=== PATIENT | female | born 1965 | race Caucasian/White ===

== ENCOUNTER → 2019-11-03 11:27 | Outpatient (BNVA) | payer MEDICARE, MEDICAID, SELFPAY | PROVIDERS: Family Provider Nurse Practitioner Family; PCP Nurse Practitioner Family; Visit Provider Nurse Practitioner | DX: J02.9 Acute pharyngitis, unspecified (principal) | CPT/HCPCS: 87880 ==

== ENCOUNTER → 2020-02-08 10:16 | Outpatient (BNVA) | payer MEDICARE, MEDICAID, SELFPAY | PROVIDERS: Family Provider Nurse Practitioner Family; PCP Nurse Practitioner Family; Visit Provider Nurse Practitioner Family | DX: I10 Essential (primary) hypertension (principal); E05.90 Thyrotoxicosis, unspecified without thyrotoxic crisis or storm; E55.9 Vitamin D deficiency, unspecified; D64.9 Anemia, unspecified; M11.262 Other chondrocalcinosis, left knee; E78.2 Mixed hyperlipidemia; Z79.899 Other long term (current) drug therapy; E04.9 Nontoxic goiter, unspecified; M71.22 Synovial cyst of popliteal space [Baker], left knee; M51.36 Other intervertebral disc degeneration, lumbar region; M51.34 Other intervertebral disc degeneration, thoracic region; M54.9 Dorsalgia, unspecified; E03.9 Hypothyroidism, unspecified; G89.29 Other chronic pain | CPT/HCPCS: 80053; 80061; 81001; 82306; 82607; 83036; 83540; 84439; 84443; 84481; 84550; 85025 ==

== ENCOUNTER 2020-03-07 06:51 | Outpatient (CLI) | payer MEDICARE, MEDICAID, SELFPAY ==
--- NOTE | 2020-03-07 07:15 | US_ITS ---
WS: [id number] THYROID ULTRASOUND HISTORY: goiter COMPARISON: None available. Right lobe: 3.7 cm x 2.1 cm x 2.1 cm. Volume: 8.6 cm3. Heterogeneous thyroid. Ill-defined hypoechoic nodule in the inferior lobe measuring 1.1 x 1.0 x 1.5 c m. Poorly defined. There is an additional smaller nodule with a maximum diameter of 8 mm in the super ior thyroid. Left lobe: 3.6 cm x 1.5 cm x 1.8 cm. Volume: 5.1 cm3. Hypoechoic mass within the inferior thyroid measures 1.1 x 0.9 x 1.1 cm. Isthmus: 0.4 cm. Hypoechoic nodules in the mid isthmus. These are subcentimeter. US/US thyroid [id number] IMPRESSION: 1. Several bilateral thyroid nodules. The largest in the inferior RIGHT lobe m easures 1.5 maximum diameter. As there are multiple nodules suggest 6-12 month ultrasound follow-up to document stability.
--- NOTE | 2020-03-07 08:00 | US_ITS ---
WS: [id number] ULTRASOUND SOFT TISSUES LEFT popliteal fossa. HISTORY: Ascencio's Cyst COMPARISON: 04/08/2019 TECHNIQUE: 2-D and color Doppler imaging is submitted. Minimally complex cystic mass in the popliteal fossa measures 2.1 x 1.0 x 1.9 cm. No increased vascul arity. Just medial to this collection is irregular shaped hypoechoic area which was also present on t he prior study. This is probably connected by a small tract to the larger cyst. There is no increased vascularity. US/US soft tissue/extremity [id number] IMPRESSION: Complex, multilobular cystic area in the LEFT popliteal fossa. Probably represe nting a Ascencio's cyst. Similar appearance on 04/08/2019.
== END 2020-03-07 06:52 | disposition home or self-care (01) ==
LOC: RAD 06:54
PROVIDERS: PCP Nurse Practitioner Family; Visit Provider Nurse Practitioner Family
DX: M71.22 Synovial cyst of popliteal space [Baker], left knee (principal); E04.9 Nontoxic goiter, unspecified; E04.2 Nontoxic multinodular goiter
CPT/HCPCS: 76536; 76882

== ENCOUNTER 2020-03-07 09:47 | Outpatient (CLI) | payer MEDICARE, MEDICAID, SELFPAY ==
--- NOTE | 2020-03-07 09:49 | MR_ITS ---
WS: [id number] MRI CERVICAL SPINE HISTORY: CERVICAL RADICULITIS COMPARISON: 01/21/2003 Normal alignment of the cervical vertebrae. Mild disc desiccation throughout. Signal within the cord is normal. Mild disc desiccation and bulging at C5-6 and C6-7. Craniocervical junction, C1 and C2 relationship, odontoid process and soft tissues are normal. C2-C3: Normal. C3-C4: Small LEFT foraminal osteophytes. No significant stenosis. C4-C5: Mild annular disc bulging and small foraminal osteophytes. No significant stenosis. C5-C6: Mild annular disc bulging with a central protrusion. Mild central and bilateral foraminal narr owing. C6-C7: Mild annular disc bulging and small central disc protrusion. No significant stenosis. C7-T1: Normal. Paraspinal soft tissue are normal. MR/MR cervical spin wo con* [id number] IMPRESSION: 1. No significant central or foraminal stenosis. 2. Small central disc protrusions and vertebral body osteophytes at C5-6 and C 6-7. 3. Very mild central and bilateral foraminal narrowing at C5-6. Findings simil ar to the prior examination from 2002.
== END 2020-03-07 09:48 | disposition home or self-care (01) ==
LOC: RADSHAW 09:47
PROVIDERS: PCP Nurse Practitioner Family; Visit Provider Anesthesiology
DX: M54.12 Radiculopathy, cervical region (principal); M50.223 Other cervical disc displacement at C6-C7 level; M48.02 Spinal stenosis, cervical region
CPT/HCPCS: 72141

== ENCOUNTER → 2020-07-18 08:38 | Outpatient (BNVA) | payer MEDICARE, MEDICAID, SELFPAY | PROVIDERS: PCP Nurse Practitioner Family; Visit Provider Nurse Practitioner Family | DX: Z11.59 Encounter for screening for other viral diseases (principal); J22 Unspecified acute lower respiratory infection; U07.1 COVID-19 | CPT/HCPCS: 87635 ==

== ENCOUNTER 2020-07-26 16:44 | Inpatient (IN) | payer MEDICARE, MEDICAID, SELFPAY ==
[2020-07-26] VITALS (10 sets, daily range): BP systolic 116–213; BP diastolic 63–121; PULSE 71–90; RESP 18–22; TEMP 36.8–37; O2SAT 92–97; BMI 50.3
--- NOTE | 2020-07-26 16:54 | XRR_ITS ---
PROCEDURE INFORMATION: Exam: XR Chest, 1 View Exam date and time: 07/26/2020 5:19 PM Age: 55 years old Clinical indication: Chest pain; Patient HX: Cp TECHNIQUE: Imaging protocol: XR of the chest Views: 1 view. COMPARISON: No relevant prior studies available. FINDINGS: Lungs: Unremarkable. No consolidation. Pleural space: Unremarkable. No pleural effusion. No pneumothorax. Heart/Mediastinum: Unremarkable. No cardiomegaly. Bones/joints: Unremarkable. Other findings: Obesity. XR/XR chest 1V portable [id number] IMPRESSION: Nonacute.
--- NOTE | 2020-07-26 16:54 | ECG_ITS ---
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
[2020-07-26] MEDS: labetalol 5 mg/mL SDV 20mL 20 MG IVP (17:03)
[2020-07-26 17:04] LABS: Basophils # 0.1 10^3/uL (0.0-0.1); Basophils % 0.5 %; Eosinophils # 0.5 10^3/uL (0.0-0.8); Eosinophils % 4.9 %; Hematocrit 45.2 % (37.0-47.0); Hemoglobin 14.9 g/dL (11.5-15.3); Lymphocytes % 20.6 %; Mean Corpuscular Volume 91.1 fL (81-99); Mean Platelet Volume 10.2 fL (7.4-10.4); Monocytes # 1.2 10^3/uL (0.2-0.9); Monocytes % 11.8 %; Neutrophils # 6.11 10^3/uL (1.8-7.7); Neutrophils % 61.8 %; Nucleated Red Blood Cells % 0 %; Platelet Count 166 10^3/cmm (130-400); Red Blood Count 4.96 10^6/uL (4.1-5.3); Red Cell Distribution Width 13.1 % (12.1-15.1); White Blood Count 9.9 10^3/uL (4.0-10.0)
--- NOTE | 2020-07-26 17:16 | ED_ITS ---
HPI - SOB/Dyspnea General: Chief Complaint: Shortness of Breath/Dyspnea Stated Complaint: DIFF BREATHING Time Seen by Provider: 07/26/20 16:49 Source: patient Mode of arrival: ambulatory Limitations: no limitations History of Present Illness: HPI Narrative: 55-year-old female who states she has been around a lot of dust and feels like she has been having area reactions to the dust. She states that over the last 2 days she has had intermittent shortness of breath with some chest pains. Patient is hypertensive today here of 260/132 but states she has not taken any of her meds. States her pain was a sharp pain in the center of her chest and is worse with palpation. She denies any fevers. Associated symptoms: Reports chest pain; Deny abdominal pain, fever(s), nausea or vomiting Review of Systems Const: Denies: fever(s), chills, body aches or change in appetite Eyes: Denies: blurry vision or eye discomfort ENMT: Denies: throat pain or dental pain Card: Reports: chest pain Resp: Reports: dyspnea GI: Denies: abdominal pain, nausea, vomiting or diarrhea : Denies: dysuria Musc: Denies: neck pain or back pain Skin/Breast: Denies: rash Neuro: Denies: headache(s) Psych: Denies: depression Jace/Lymph: Denies: easy bruising All/Imm: Denies: urticaria PFSH ED PFSH: Medical History Breast cancer screening by mammogram Chest pain Chest pain Hypertension Hypothyroidism Lower respiratory tract infection due to COVID-19 virus Mixed hyperlipidemia Morbid obesity Obesity Patient has been followed for one year for planned bariatric weight loss surgery. Pseudogout of left knee Sleep apnea Synovial cyst of popliteal space [Ascencio], left knee Surgical History History of bladder surgery (1996) History of cholecystectomy (1992) History of ear surgery (2011) Right ear construction and left ear tube placed History of hysterectomy (1995) History of tonsillectomy and adenoidectomy History of tubal ligation (1989) Family History Sister Diabetes Grandmother Diabetes Mother Hypoglycemia Other Cancer Denies family history of Anesthesia complication Bleeding disorder Social History Smoking and tobacco status: never smoked Second hand smoke exposure: No Smoking risk assessment/counseling performed?: No Alcohol intake: never Desire information about alcohol rehabilitation?: No Counseling given: No Desire information about substance/drug rehabilitation?: No Counseling given: No Lives independently: Yes Household members: children Current occupational status: disabled History of recent travel: No Special brissa needs: No Agree to transfusion: No Physical Exam Const: COMMON NORMALS: no acute distress, patient oriented x3 and healthy appearing HENMT: COMMON NORMALS: normocephalic and atraumatic HEAD & SCALP: normocephalic and atraumatic Eye: COMMON NORMALS: Equal, round and reactive pupils present and EOMs intact bilaterally PUPIL: Yes Equal, round and reactive pupils present Neck/C-Spine: COMMON NORMALS: full ROM and supple Chest: COMMONS NORMALS: normal inspection of the chest OTHER: Point tenderness in her chest Resp: COMMON NORMALS: normal respiratory effort, No retractions, No use of accessory muscles and clear to auscultation bilaterally AUSCULTATION: clear to auscultation bilaterally Cardio: COMMON NORMALS: regular rate, regular rhythm and No murmurs present (Cardio) RATE: regular rate RHYTHM: regular rhythm GI: COMMON NORMALS: Normal to inspection, nondistended, normoactive bowel sounds present, Soft to palpation, non-tender and no masses PALPATION: Yes Soft to palpation Extremity: COMMON NORMALS: normal to inspection and full ROM Neuro: COMMON NORMALS: patient oriented x3, moves all extremities and no focal motor deficits Psych: COMMON NORMALS: mental status grossly normal, Normal thought process present and cooperative THOUGHT PROCESS: Normal thought process present Skin: COMMON NORMALS: no rashes or lesions noted and no wounds GENERAL SKIN EXAM: no rashes or lesions noted Course Vital Signs: Vital signs: Vital Signs Temperature 98.6 F 07/26/20 16:47 Pulse Rate 84 07/26/20 19:19 Respiratory Rate 20 H 07/26/20 19:19 Blood Pressure 193/110 07/26/20 19:19 Pulse Oximetry 97 07/26/20 19:19 MDM - SOB/Dyspnea MDM Narrative: Medical decision making narrative: Freda presents here with dyspnea along with some chest pain. Patient does have an elevated BNP and CT shows possible CHF. Spoke to hospitalist will admit for observation as likely patient needs trended troponin and cardiac echo. I gave patient IV Chuy here. Will admit to cardiac stepdown. Lab Data: Labs: Lab Results 07/26/20 07/26/20 07/26/20 Range/Units 16:55 16:55 16:55 WBC 9.9 (4.0-10.0) 10^3/ uL RBC 4.96 (4.1-5.3) 10^6/u L Hgb 14.9 (11.5-15.3) g/dL Hct 45.2 (37.0-47.0) % MCV 91.1 (81-99) fL MCH 30.0 (28.0-34.0) pg MCHC 33.0 (30.0-36.0) g/dL RDW 13.1 (12.1-15.1) % Plt Count 166 (130-400) 10^3/c mm MPV 10.2 (7.4-10.4) fL Neut % (Auto) 61.8 % Lymph % (Auto) 20.6 % [place] % (Auto) 11.8 % Eos % (Auto) 4.9 % Baso % (Auto) 0.5 % Neut # (Auto) 6.11 (1.8-7.7) 10^3/u L Lymph # (Auto) 2.0 (0.8-4.8) 10^3/u L [place] # (Auto) 1.2 H (0.2-0.9) 10^3/u L Eos # (Auto) 0.5 (0.0-0.8) 10^3/u L Baso # (Auto) 0.1 (0.0-0.1) 10^3/u L Nucleated RBC % (a uto) 0 % Nucleated RBCs # 0.0 /100WBC D-Dimer (0-0.59) ug/mIFE U Sodium 140 (136-145) mmol/L Potassium 4.0 (3.5-5.1) mmol/L Chloride 104 (98-107) mmol/L Carbon Dioxide 28 (22-29) mmol/L Anion Gap 12.0 (5-19) BUN 9 (6-20) mg/dL Creatinine 0.8 (0.5-0.9) mg/dL GFR Calculation 74.7 L (90-130) mL/min Glucose 107 (65-115) mg/dL Calculated Osmolal ity 289 (285-295) mOsm/k g Calcium 9.4 (8.5-10.5) mg/dL Total Bilirubin 0.9 (0.15-1.2) mg/dL AST 46 H (0-32) U/L ALT 48 H (0-33) U/L Alkaline Phosphata se 146 H (35-105) IU/L Troponin T Baselin e 37 H (0-10) ng/L Troponin T 120 Min burns pai[place] (0-10) ng/L Delta Troponin T (0-10) ABS# NT-Pro-B Natriuret Pep (0-125) pg/mL Total Protein 7.1 (6.6-8.7) g/dL Albumin 4.0 (3.5-5.2) g/dL Globulin 3.1 (1.3-4.6) g/dL 07/26/20 07/26/20 07/26/20 Range/Units 16:55 17:48 19:25 WBC (4.0-10.0) 10^3/ uL RBC (4.1-5.3) 10^6/u L Hgb (11.5-15.3) g/dL Hct (37.0-47.0) % MCV (81-99) fL MCH (28.0-34.0) pg MCHC (30.0-36.0) g/dL RDW (12.1-15.1) % Plt Count (130-400) 10^3/c mm MPV (7.4-10.4) fL Neut % (Auto) % Lymph % (Auto) % [place] % (Auto) % Eos % (Auto) % Baso % (Auto) % Neut # (Auto) (1.8-7.7) 10^3/u L Lymph # (Auto) (0.8-4.8) 10^3/u L [place] # (Auto) (0.2-0.9) 10^3/u L Eos # (Auto) (0.0-0.8) 10^3/u L Baso # (Auto) (0.0-0.1) 10^3/u L Nucleated RBC % (a uto) % Nucleated RBCs # /100WBC D-Dimer 1.41 H (0-0.59) ug/mIFE U Sodium (136-145) mmol/L Potassium (3.5-5.1) mmol/L Chloride (98-107) mmol/L Carbon Dioxide (22-29) mmol/L Anion Gap (5-19) BUN (6-20) mg/dL Creatinine (0.5-0.9) mg/dL GFR Calculation (90-130) mL/min Glucose (65-115) mg/dL Calculated Osmolal ity (285-295) mOsm/k g Calcium (8.5-10.5) mg/dL Total Bilirubin (0.15-1.2) mg/dL AST (0-32) U/L ALT (0-33) U/L Alkaline Phosphata se (35-105) IU/L Troponin T Baselin e (0-10) ng/L Troponin T 120 Min burns [place] 40.89 H (0-10) ng/L Delta Troponin T 3.89 (0-10) ABS# NT-Pro-B Natriuret Pep 2291 H (0-125) pg/mL Total Protein (6.6-8.7) g/dL Albumin (3.5-5.2) g/dL Globulin (1.3-4.6) g/dL Imaging Data^: CXR: Attestation: I personally reviewed and interpreted this imaging study as follows: Radiologist's impression: [address] [address] XRay Report Signed Patient: Freda Perry Unit #: [id number] : 1965 Age/Sex: 55 / F ADM Date: 07/26/20 Loc: ER Room/Bed: Attending Dr: Ordering Provider/Ordering MD: Joanie Sheets MD Date of Service: 07/26/20 Procedure(s): XR chest 1V portable [id number] Accession Number(s): [id number] Report Number: [id number] PROCEDURE INFORMATION: Exam: XR Chest, 1 View Exam date and time: 07/26/2020 5:19 PM Age: 55 years old Clinical indication: Chest pain; Patient HX: Cp TECHNIQUE: Imaging protocol: XR of the chest Views: 1 view. COMPARISON: No relevant prior studies available. FINDINGS: Lungs: Unremarkable. No consolidation. Pleural space: Unremarkable. No pleural effusion. No pneumothorax. Heart/Mediastinum: Unremarkable. No cardiomegaly. Bones/joints: Unremarkable. Other findings: Obesity. XR/XR chest 1V portable [id number] IMPRESSION: Nonacute. CT Chest: Radiologist's impression: [address] [address] [address] Scan Report Signed Patient: Freda Perry Unit #: [id number] : 1965 Age/Sex: 55 / F ADM Date: 07/26/20 Loc: ER Room/Bed: Attending Dr: Ordering Provider/Ordering MD: Joanie Sheets MD Date of Service: 07/26/20 Procedure(s): CT angio chest PE prot [id number] Accession Number(s): [id number] Report Number: [id number] PROCEDURE INFORMATION: Exam: CT Angiography Chest With Contrast Exam date and time: 07/26/2020 7:03 PM Age: 55 years old Clinical indication: Shortness of breath; Additional info: RO pe TECHNIQUE: Imaging protocol: Computed tomographic angiography of the chest with intravenous contrast. 3D rendering (Not supervised by radiologist): MIP and/or 3D reconstructed images were created by the technologist. Radiation optimization: All CT scans at this facility use at least one of these dose optimization techniques: automated exposure control; mA and/or kV adjustment per patient size (includes targeted exams where dose is matched to clinical indication); or iterative reconstruction. Contrast material: OMNI 350; Contrast volume: 72 ml; Contrast route: INTRAVENOUS (IV); COMPARISON: CR XR chest 1V portable [id number] 07/26/2020 5:08 PM RADIATION DOSE METRICS: Total DLP (mGy-cm): 534.15 FINDINGS: Pulmonary arteries: No visible evidence of pulmonary embolism/pulmonary arterial thrombus. Aorta: Unremarkable. No aortic aneurysm. No aortic dissection. Lungs: Minimal dependent atelectasis lung bases. Evidence of antecedent granulomatous disease to include calcified granulomas. Pleural space: Bilateral small volume pleural effusions. Heart: Cardiac size upper limits of normal. Left ventricular prominence. No visible pericardial effusion. Lymph nodes: Unremarkable. No enlarged lymph nodes. Liver: Hepatosplenomegaly. Gallbladder and bile ducts: Status post cholecystectomy. Bones/joints: Diffuse idiopathic skeletal hyperostosis. No visible acute osseous abnormality. Soft tissues: Unremarkable. Other findings: Marked obesity. Increased quantum mottle artifact which degrades image quality in detail. CT/CT angio chest [place] protcl [id number] IMPRESSION: 1. No visible evidence of pulmonary embolism/pulmonary arterial thrombus. 2. Bilateral small volume pleural effusions. 3. Cardiac size upper limits of normal. 4. Left ventricular prominence. 5. Hepatosplenomegaly. 6. Minimal dependent atelectasis lung bases. 7. Status post cholecystectomy. 8. Evidence of antecedent granulomatous disease. EKG Data^: EKG 1: Attestation: I personally reviewed and interpreted this EKG as follows: EKG Interpretation Date: 07/26/20 EKG interpretation time: 16:49 Interpretation: nsr hr [address] or t wave abnormalities qrs 170 qtc 468 EKG 2: Attestation: I personally reviewed and interpreted this EKG as follows: EKG Interpretation Date: 07/26/20 EKG interpretation time: 18:49 Interpretation: nsr hr [address] or t wave abnormality Discharge Plan Discharge Patient Disposition: Admitted As Inpatient Clinical Impression: Congestive heart failure, Acute dyspnea Condition: Stable Referrals: [facility] Ham, [employer] [Primary Care Provider] - Coding Level of Care Code ED Hoe Runner for Chg Fwd Exam Comprehensive
[2020-07-26 17:25] LABS: Alanine Aminotransferase 48 U/L (0-33); Alkaline Phosphatase 146 IU/L (35-105); Aspartate Amino Transferase 46 U/L (0-32); Blood Urea Nitrogen 9 mg/dL (6-20); Calcium 9.4 mg/dL (8.5-10.5); Carbon Dioxide 28 mmol/L (22-29); Chloride 104 mmol/L (98-107); Globulin 3.1 g/dL (1.3-4.6); Glomerular Filtration Rate 74.7 mL/min (90-130); Glucose 107 mg/dL (65-115); Osmolality Calculated 289 mOsm/kg (285-295); Sodium 140 mmol/L (136-145); Total Bilirubin 0.9 mg/dL (0.15-1.2); Total Protein 7.1 g/dL (6.6-8.7)
[2020-07-26 17:38] LABS: Troponin(5th) Baseline 37 ng/L (0-10)
[2020-07-26 18:17] LABS: D Dimer 1.41 ug/mIFEU (0-0.59)
--- NOTE | 2020-07-26 18:19 | CTR_ITS ---
PROCEDURE INFORMATION: Exam: CT Angiography Chest With Contrast Exam date and time: 07/26/2020 7:03 PM Age: 55 years old Clinical indication: Shortness of breath; Additional info: RO pe TECHNIQUE: Imaging protocol: Computed tomographic angiography of the chest with intravenous contrast. 3D rendering (Not supervised by radiologist): MIP and/or 3D reconstructed images were created by the technologist. Radiation optimization: All CT scans at this facility use at least one of these dose optimization techniques: automated exposure control; mA and/or kV adjustment per patient size (includes targeted exams where dose is matched to clinical indication); or iterative reconstruction. Contrast material: OMNI 350; Contrast volume: 72 ml; Contrast route: INTRAVENOUS (IV); COMPARISON: CR XR chest 1V portable [id number] 07/26/2020 5:08 PM RADIATION DOSE METRICS: Total DLP (mGy-cm): 534.15 FINDINGS: Pulmonary arteries: No visible evidence of pulmonary embolism/pulmonary arterial thrombus. Aorta: Unremarkable. No aortic aneurysm. No aortic dissection. Lungs: Minimal dependent atelectasis lung bases. Evidence of antecedent granulomatous disease to include calcified granulomas. Pleural space: Bilateral small volume pleural effusions. Heart: Cardiac size upper limits of normal. Left ventricular prominence. No visible pericardial effusion. Lymph nodes: Unremarkable. No enlarged lymph nodes. Liver: Hepatosplenomegaly. Gallbladder and bile ducts: Status post cholecystectomy. Bones/joints: Diffuse idiopathic skeletal hyperostosis. No visible acute osseous abnormality. Soft tissues: Unremarkable. Other findings: Marked obesity. Increased quantum mottle artifact which degrades image quality in detail. CT/[place] ang[place] chest [place] protcl [id number] IMPRESSION: 1. No visible evidence of pulmonary embolism/pulmonary arterial thrombus. 2. Bilateral small volume pleural effusions. 3. Cardiac size upper limits of normal. 4. Left ventricular prominence. 5. Hepatosplenomegaly. 6. Minimal dependent atelectasis lung bases. 7. Status post cholecystectomy. 8. Evidence of antecedent granulomatous disease. Radiation Dose CTDIVOL = (mGy): DLP = 534.15 (mGy-cm)
[2020-07-26 18:38] LABS: NT Pro B Type Natriuretic Pept 2291 pg/mL (0-125)
--- NOTE | 2020-07-26 18:54 | ECG_ITS ---
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
[2020-07-26] MEDS: iohexol 350 mg/mL 100 mL Btl IV (19:06)
--- NOTE | 2020-07-26 19:34 | PC.NURSE ---
1924 2nd troponin to lab
[2020-07-26] MEDS: FUROsemide 10 mg/mL SDV 4mL 40 MG IVP (19:37)
[2020-07-26 20:00] LABS: Troponin 5 2HR 40.89 ng/L (0-10); Troponin 5 2HR Delta 3.89 ABS# (0-10)
[2020-07-26 21:01] LABS: SARS Covid-2 Antigen Negative (Negative)
--- NOTE | 2020-07-26 21:01 | PC.NURSE ---
up to void
--- NOTE | 2020-07-26 21:58 | PC.NURSE ---
Addendum entered by Nirmala Mcfarlane RN 07/26/20 22:15: Dr. Gutierrez notified of patient reporting having diarrhea for a little over a week. Original Note: Patient arrived to the floor from the ED after report was received via phone. Patient is alert and oriented and ambulatory. Patient has been oriented to her room and has call light within reach. Dr. Gutierrez notified of blood pressure of 195/116. Patient states she hasn't had any falls recently, but that 4 or 5 months ago she was having falls at home frequently. Patient states she has right shoulder and has had it for months 12/07. Patient states this week I started having pain in my breast bone as well as my shoulder. Pain rated at 3/10. Patient states I have gout and arthritis.
[2020-07-26] MEDS: amlodipine 10 mg Tablet PO (23:18)
--- NOTE | 2020-07-26 23:18 | PM.HP ---
Providers/Chief Complaint Admitting Physician: Aniyah Gutierrez MD Primary Care Provider: ROMINA Thompson Chief Complaint: DIFF BREATHING History of Present Illness Freda Perry is a 55 year old female with a past medical history of hypertension spinal stenosis gout hypothyroidism who presented to the ER today with chief complaints of shortness of breath. She reports pain in her usual state of health until about 3 weeks ago when she developed complaints of dyspnea on exertion which has progressed over the past 3 weeks. At the onset of symptoms she also noted to have cough which was nonproductive. At the time she thought that her illness was related to being exposed to sick contacts at home by way of grandson with URI symptoms and her niece who had recently tested positive for COVID-19. Patient herself was also tested for Covid by PCR on July 18 which resulted negative. Rapid antigen today is also negative. She denies any complains of fever over this this timeframe. Since the onset of symptoms she states that her dyspnea has progressed to the point where she needs assistance in moving from bed to her bathroom. Reports that she has usually chronic joint pains, however over this same time she has noticed a retrosternal and right shoulder pain on exertion, which is new for her. Overall she states that her arthritic pains have been improving in the past 3 to 4 months after being given spinal injections for what appears to be is spinal stenosis. She has intentionally lost about 30 pounds since the beginning of the year by exercising had had in fact been feeling improved until about 3 weeks ago. Last weekend she developed sudden shortness of breath while lying down, EMS was called to her home and she was noted to be hypertensive with systolic blood pressure up to 190s and O2 sat of 89%. She elected not to come to the ER at that time. She had a repeat episode this weekend as well, visited her primary care provider this morning and was noted to be hypertensive. Her O2 sats at that time were noted to be in the 90s. For her chest pain and dyspnea she was advised to come into the ER. Diagnostics in the ER thus far show EKGs with sinus rhythm, left bundle branch block of unknown duration, T wave inversions in lead I to V6 and possible LVH per my read. Baseline troponin at 37, subsequently at 40 and then 38, unremarkable delta's. BNP elevated at 2200. D-dimer noted to be mildly elevated following which he underwent a CTA of the chest. This was negative for PE. Number bilateral small volume pleural effusions and left ventricular prominence together with hepatosplenomegaly. Upon arrival to the ER her blood pressure was 213/121 for which she received IV labetalol with improvement in blood pressure to 154/83. Oxygen saturation has remained between 95 to 98% on room air. Review of systems positive for diarrhea over the past week. Colchicine has been discontinued. It appears that patient is on daily colchicine once a day Review of Systems General: Reports: 10 or more systems reviewed and unremarkable except in HPI and below Const: Reports: body aches; Denies: fever(s) or chills Eyes: Denies: change in vision, blurry vision or photophobia ENMT: Denies: throat pain, enlarged tonsils, odynophagia, hoarseness or nasal congestion Card: Reports: chest pain, edema, dyspnea on exertion and orthopnea; Denies: palpitations, irregular heart rhythm, swelling of feet/ankles, lightheadedness or pre-syncope Resp: Reports: dyspnea and non-productive cough; Denies: productive cough, wheezing, stridor, pain on inspiration, change in phlegm color, hemoptysis or chest congestion GI: Reports: diarrhea; Denies: abdominal pain, nausea, vomiting, hematemesis, coffee ground emesis, dysphagia, heartburn, constipation, GI cramping, change in stool character, hematochezia or melena : Denies: flank pain, difficulty voiding, dysuria, urinary frequency, urinary urgency, urinary hesitancy or hematuria Musc: Denies: neck pain, back pain, extremity pain, joint swelling, joint warmth or deformity Neuro: Denies: headache(s), numbness in extremities, weakness in extremities, sensory changes, difficulty walking, frequent falls, dizziness, vertigo, behavioral changes, Slurred speech present or seizure-like activity Psych: Denies: anxiety, depression, suicidal ideation or homicidal ideation Endo: Denies: polyuria, polydipsia, tired all the time, cold intolerance or hot flashes Jace/Lymph: Denies: easy bruising or easy bleeding Medications/Allergies Home Medications Medication Instructions Recorded Confirmed Last Taken Type metoprolol tartrate 25 mg tablet See Rx Instructions .ROUTE .COMPLEX 10/16/19 07/26/20 07/24/20 History diclofenac sodium 1 % topical gel See Rx Instructions .ROUTE 04/21/20 07/26/20 Unknown Rx .COMPLEX #300 gm albuterol sulfate 90 mcg/actuation 2 puff INHALATION Q6H PRN #18 gm 07/19/20 07/26/20 07/26/20 Rx aerosol inhaler azithromycin 250 mg tablet See Rx Instructions PO .COMPLEX #6 07/22/20 07/26/20 Unknown Rx tab cephalexin 500 mg capsule 500 mg PO BID 7 Days #14 cap 07/22/20 07/26/20 07/24/20 Rx prednisone 20 mg tablet 40 mg PO .Daily in A.M. PRN 5 Days 07/22/20 07/26/20 Unknown Rx #10 tab Colcrys 0.6 mg PO BID 07/26/20 07/26/20 07/25/20 History Probiotic 1 cap PO PRN 07/26/20 07/26/20 Unknown History Synthroid 75 mcg PO DAILY 07/26/20 07/26/20 07/25/20 History acetaminophen [Tylenol Extra 1,000 mg PO PRN 07/26/20 07/26/20 Unknown History Strength] duloxetine 30 mg PO DAILY 07/26/20 07/26/20 07/25/20 History hydrochlorothiazide 12.5 mg PO DAILY 07/26/20 07/26/20 07/25/20 History Allergies Allergy/AdvReac Type Severity Reaction Status Date / Time morphine Allergy Severe ALGY-Difficulty Verified 07/26/20 21:56 Breathing Sulfa (Sulfonamide Allergy Severe ALGY-Hives Verified 07/26/20 21:56 Antibiotics) aspirin Allergy Mild Algy-Hives Verified 07/26/20 21:56 apricot Allergy ALGY-Rash Verified 07/26/20 21:57 chocolate flavor Allergy ALGY-Rash Verified 07/26/20 21:57 ketorolac [From Toradol] Allergy ALGY-Hives Verified 07/26/20 21:56 latex Allergy ALGY-Rash Verified 07/26/20 21:56 olopatadine [From Pataday] Allergy ADR-Buring Verified 07/26/20 21:56 pain in eyes codeine AdvReac ADR-Halluci Verified 07/26/20 21:56 nating PFSH Acute PFSH: Medical History Breast cancer screening by mammogram Chest pain Chest pain Hypertension Hypothyroidism Lower respiratory tract infection due to COVID-19 virus Mixed hyperlipidemia Morbid obesity Obesity Patient has been followed for one year for planned bariatric weight loss surgery. Pseudogout of left knee Sleep apnea Synovial cyst of popliteal space [Ascencio], left knee Surgical History History of bladder surgery (1996) History of cholecystectomy (1992) History of ear surgery (2011) Right ear construction and left ear tube placed History of hysterectomy (1995) History of tonsillectomy and adenoidectomy History of tubal ligation (1989) Family History Sister Diabetes Grandmother Diabetes Mother Hypoglycemia Other Cancer Denies family history of Anesthesia complication Bleeding disorder Social History Smoking and tobacco status: never smoked Second hand smoke exposure: No Smoking risk assessment/counseling performed?: No Alcohol intake: never Desire information about alcohol rehabilitation?: No Counseling given: No Desire information about substance/drug rehabilitation?: No Counseling given: No Lives independently: Yes Household members: children Current occupational status: disabled History of recent travel: No Special brissa needs: No Agree to transfusion: No Vitals/I&O/Wt Last Vital Signs Temp 98.3 F 07/26/20 21:13 Pulse 80 07/26/20 21:13 Resp 18 07/26/20 21:13 BP 188/112 07/26/20 22:40 Pulse Ox 95 07/26/20 21:13 Weight last 48 hrs Weight 124.738 kg Physical Exam Narrative: EXAM NARRATIVE: GENERAL: Awake, alert, oriented, in no acute distress. [] HEENT: Normocephalic, atraumatic, PERRLA. [] CHEST: Clear to auscultation bilaterally. [] CVS: S1, S2 normal. No murmur, rubs, gallops. Peripheral pulses palpable. [] ABDOMEN: Soft, nontender. Nondistended. Bowel sounds heard. [] NEUROVASCULAR: Awake, alert. Power 5/5 all extremities. DTR+ [] EXTREMITIES: 1+ pitting edema] Data : 07/27/20 04:38 07/26/20 16:55 A&P Assessment and plan (1) Hypertensive urgency: Status: Acute (2) Congestive heart failure: Status: Acute Qualifiers: Heart failure type: unspecified Heart failure chronicity: unspecified Qualified Code(s): I50.9 - Heart failure, unspecified (3) Chest pain: Status: Acute Qualifiers: Chest pain type: unspecified Qualified Code(s): R07.9 - Chest pain, unspecified (4) Acute dyspnea: Status: Acute (5) DDD (degenerative disc disease), cervical: Status: Acute Additional A&P Information 55-year-old lady with a past medical history of hypertension, pseudogout and degenerative disc disease currently presenting with hypertensive urgency, atypical chest pain, worsening dyspnea on exertion over the past 3 weeks. #Hypertensive urgency Initial blood pressure on presentation noted to be 212/113, this is improved to systolic of 150s after being given labetalol in the ER. EKG without acute ST-T wave changes, however noted to have LBBB, T wave inversions and ?LVH Troponin series without significant delta. Start amlodipine 10 mg p.o. daily. Also started on Lasix 40 mg IV every 12 hours for possible new CHF. Hold hydrochlorothiazide with initiation of Lasix. Patient's home medications note metoprolol 25 mg to be taken only on Sundays, patient is uncertain how she takes this. For now we will start her on metoprolol 12.5 mg p.o. daily and titrate up as needed. Topical Nitro-Bid 1 inch every 6 hours to help with chest pain and also blood pressure control. #Atypical chest pain EKG is as above, troponin series negative Could be related to hypertensive urgency, however given her risk factors, cannot rule out angina May need stress test once optimized from a CHF perspective #Possible new onset CHF given elevated BNP and 1+ edema in lower extremities together with history of progressive dyspnea on exertion over the past 3 weeks Lasix 40 mg IV every 12 hours Check daily weight Monitor GRISELDA closely Echocardiogram ordered to estimate EF and a certain diastolic function Given onset of symptoms after what appears to be a URI illness, cannot exclude viral cardiomyopathy at this time Noted to have low oxygen saturation between 80 to 89% as an outpatient over the past week. Currently saturating well on room air. CTA chest without evidence of PE. Rapid Covid antigen negative, PCR as outpatient on additionally negative. #Hypothyroidism: Continue levothyroxine 75 mics p.o. daily #Pseudogout, patient appears to be on colchicine daily. Currently reporting diarrhea, will hold colchicine for now and monitor. Also check C. difficile given diarrhea given that patient has been on azithromycin as an outpatient for URI symptoms. 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
[2020-07-26] MEDS: enoxaparin 40 mg/0.4 mL Syringe SUBCUT (23:19)
[2020-07-26] MEDS: diclofenac 1% Topical Gel 100 gm 1 APPLIC TOPICAL (23:22)
--- NOTE | 2020-07-26 23:31 | PC.NURSE ---
Dr. Gutierrez notified of Lasix being ordered for now and some being given in ED at 1937. Ordered to start Lasix 12 hours from last dose.
[2020-07-26 23:41] LABS: Troponin 5 6HR 38.41 ng/L (0-10); Troponin 5 6HR Delta 1.41 ng/L (0-12)
[2020-07-27] VITALS (11 sets, daily range): BP systolic 143–179; BP diastolic 71–107; PULSE 63–87; RESP 10–26; TEMP 36.6–37.1; O2SAT 90–95
[2020-07-27] MEDS: nitroglycerin 1 gm/inch oint Pkt 1 INCH TOPICAL ×2 (03:38→08:42)
[2020-07-27 05:07] LABS: Basophils % 0.4 %; Eosinophils # 0.5 10^3/uL (0.0-0.8); Eosinophils % 4.8 %; Hematocrit 41.6 % (37.0-47.0); Hemoglobin 13.8 g/dL (11.5-15.3); Lymphocytes # 2.1 10^3/uL (0.8-4.8); Lymphocytes % 21.1 %; Mean Corpuscular HGB Conc 33.2 g/dL (30.0-36.0); Mean Corpuscular Hemoglobin 30.2 pg (28.0-34.0); Mean Platelet Volume 10.1 fL (7.4-10.4); Monocytes # 1.3 10^3/uL (0.2-0.9); Monocytes % 12.7 %; Neutrophils # 6.18 10^3/uL (1.8-7.7); Neutrophils % 60.8 %; Nucleated Red Blood Cells % 0 %; Platelet Count 154 10^3/cmm (130-400); Red Blood Count 4.57 10^6/uL (4.1-5.3); Red Cell Distribution Width 13.2 % (12.1-15.1); White Blood Count 10.2 10^3/uL (4.0-10.0)
[2020-07-27 05:42] LABS: Alanine Aminotransferase 36 U/L (0-33); Albumin Level 3.5 g/dL (3.5-5.2); Alkaline Phosphatase 128 IU/L (35-105); Anion Gap 14.6 (5-19); Aspartate Amino Transferase 36 U/L (0-32); Blood Urea Nitrogen 10 mg/dL (6-20); Calcium 8.9 mg/dL (8.5-10.5); Carbon Dioxide 27 mmol/L (22-29); Chloride 102 mmol/L (98-107); Creatinine Clr Calc Pharmacy 116.8614; Globulin 3.1 g/dL (1.3-4.6); Glomerular Filtration Rate 87.2 mL/min (90-130); Glucose 108 mg/dL (65-115); Osmolality Calculated 290 mOsm/kg (285-295); Potassium 3.6 mmol/L (3.5-5.1); Sodium 140 mmol/L (136-145); Thyroid Stimulating Hormone 2.58 uIU/mL (0.27-4.20); Total Bilirubin 0.7 mg/dL (0.15-1.2); Total Protein 6.6 g/dL (6.6-8.7)
[2020-07-27 05:43] LABS: Chol HDL Ratio 3.35 mg/dL (0.0-4.40); Cholesterol 104 mg/dL (0-200); HDL Cholesterol 31 mg/dL (60-100); LDL Cholesterol Calculated 45 mg/dL (50-129); LDL HDL Ratio 1.45 RATIO (0.00-3.22); Triglycerides 141 mg/dL (0-150)
[2020-07-27] MEDS: amlodipine 10 mg Tablet PO (08:42)
[2020-07-27] MEDS: levothyroxine 150 mcg Tablet 75 MCG PO (08:42)
[2020-07-27] MEDS: duloxetine 30 mg Capsule PO (08:42)
[2020-07-27] MEDS: FUROsemide 10 mg/mL SDV 4mL 40 MG IVP ×2 (08:42→20:34)
[2020-07-27] MEDS: metoprolol tartrate 25 mg Tablet 12.5 MG PO (08:43)
--- NOTE | 2020-07-27 11:04 | ECG_ITS ---
[facility] Test Date: 2020-07-28 Pat Name: Freda Perry Department: Room: 111 Gender: Female Intern Architect: : [id number] Requested By: Ravindra Headley Order Number: [id number] Anahi MD: PINA CARROLL Interpretive Statements NAME OF STUDY: LEXISCAN SESTAMIBI STRESS TEST INDICATION: New CHF; CHANDNI NOTE: Please note that this is the electrocardiogram portion of the Lexiscan/Sestamibi stress test. The perfusion scan will be documented separately. DATA: Baseline heart rate was 73 beats per minute. Baseline blood pressure was 160/95 millimeters of mercury. Target heart rate was 166. Maximum heart rate achieved was 130. which was 78 % of the predicted target heart rate. Maximum blood pressure was 166/111 millimeters of mercury. The reason for ending the test was completion of the protocol. The patient did not experience any symptoms. ELECTROCARDIOGRAM: BASELINE: Sinus rhythm. Normal axis. Left bundle branch block EXERCISE: After Lexiscan injection, no ST-T changes suggestive of ischemic noted. No arrhythmia noted. CONCLUSION: Please note due to baseline abnormality of the EKG specificity and sensitivity of the EKG portion of LexiScan MIBI stress test will be low 1. EKG not suggestive of ischemia 2. Lexiscan injection unremarkable. 3. Perfusion scan will be documented separately. Electronically Signed On 07-29-2020 18:06:12 CDT by PINA CARROLL [id number]
--- NOTE | 2020-07-27 11:06 | P.PN_ITS ---
Subjective Subjective: Interval history: Overnight. H&P and labs noted. On examination lying comfortably in bed on room air. She states she is feeling a lot better than when she came in. Denies any nausea, vomiting, headache at present. Documented urine output since admission around 1900 cc. Vitals/I&O/Wt Last Vital Signs Temp 98.7 F 07/27/20 10:51 Pulse 75 07/27/20 10:51 Resp 10 L 07/27/20 10:51 BP 144/72 07/27/20 10:51 Pulse Ox 94 07/27/20 10:51 07/26/20 07/27/20 07/27/20 22:59 06:59 14:59 Intake Total 400 / 400 240 / 240 Output Total 850 / 850 1000 / 1000 Balance -450 / -450 -760 / -760 Weight last 48 hrs Weight 126.28 kg Weight 124.738 kg Physical Exam Narrative: EXAM NARRATIVE: General: No acute distress, AO x3, morbidly obese HEENT: PERRLA, pupils bilaterally equal and reactive Chest: Normal vesicular breath sounds, decreased breath sounds all over the lung lyn, no added sounds, equal good air entry bilaterally CVS: S1-S2 regular, no murmurs, no tachycardia, no gallops, no rubs Abdomen: Soft, nontender, no organomegaly, bowel sounds present Neuro: No focal deficits, no facial deformity, AO x3, power 5/5 in all limbs Data : 07/27/20 04:38 07/27/20 04:38 A&P Assessment and plan (1) Hypertensive urgency: Status: Acute (2) Congestive heart failure: Status: Acute Qualifiers: Heart failure chronicity: unspecified Heart failure type: unspecified Qualified Code(s): I50.9 - Heart failure, unspecified (3) Chest pain: Status: Acute Qualifiers: Chest pain type: unspecified Qualified Code(s): R07.9 - Chest pain, unspecified (4) Acute dyspnea: Status: Acute (5) Morbid obesity: Status: Acute (6) CHANDNI (obstructive sleep apnea): Status: Acute (7) Hypertension: Status: Chronic Qualifiers: Hypertension type: essential hypertension Qualified Code(s): I10 - Essential (primary) hypertension (8) Hypothyroidism: Status: Chronic Qualifiers: Hypothyroidism type: acquired Qualified Code(s): E03.9 - Hypothyroidism, unspecified (9) Left bundle branch block (LBBB): Status: Acute Additional A&P Information 55-year-old lady with a past medical history of hypertension, obstructive sleep apnea not on CPAP, morbid obesity currently presenting with hypertensive urgency, atypical chest pain, worsening dyspnea on exertion over the past 3 weeks and orthopnea for last 1 week. Hypertensive urgency: Initial blood pressure on presentation noted to be 212/113, this is improved to systolic of 150s after being given labetalol in the ER. EKG showing left bundle branch block. No old EKG in the system to compare. Troponin cycles have remained negative. However noted to have LBBB, T wave inversions and ?LVH Goal blood pressure 25% less than or systolic on admission for next 24 hours. After that goal blood pressure of less than 140/90 mmHg. New congestive heart failure: With a history of orthopnea, elevated BNP on ad mission. Could be related to CAD versus diastolic heart failure from persistent obstructive sleep apnea and hypertension versus myocarditis from recent viral infection in last 1 month. Rapid Covid antigen negative in the ER, PCR negative on July 18. CTA PE negative for pulmonary embolism. Echocardiogram done but results awaited. For now continue with IV Lasix 40 mg twice daily. Daily weights. Strict input output charting. For now stop amlodipine and metoprolol. Start patient on lisinopril 10 mg daily, Coreg 3.125 twice daily. Will uptitrate the medications according to the blood pressure. Can also plan to add Imdur depending on the blood pressures. Atypical chest pain/LBBB: Not sure if LBBB is new versus old. Troponin cycle have remained negative. N.p.o. after midnight for stress test tomorrow morning. Lipid panel, HbA1c, TSH results appreciated. Start patient on Plavix 75 mg daily as patient is allergic to aspirin with hives. #Hypothyroidism: Continue levothyroxine 75 mics p.o. daily #Pseudogout, patient appears to be on colchicine daily. Currently reporting diarrhea, will hold colchicine for now and monitor. Also check C. difficile given diarrhea given that patient has been on azithromycin as an outpatient for URI symptoms. Continue topical diclofenac. Obstructive sleep apnea. Morbid obesity. Depression/anxiety. Full code DVT ppx: lovenox. Cardiac diet, n.p.o. after midnight Attestations Medical Necessity Statement*: Needs controlled hospitalization for management of hypertensive urgency, new congestive heart failure, atypical chest pain Time Spent in Patient Care: Greater than 35 minutes (>than 50% of time spent in counselling and/or direct pt care on unit) . 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
[2020-07-27 12:12] LABS: Estmated Average Glucose 103; Hemoglobin A1C 5.2 % (4.0-6.0)
[2020-07-27] MEDS: clopidogrel 75 mg Tablet PO (12:33)
--- NOTE | 2020-07-27 15:45 | PC.NURSE ---
pt blood pressure medications being changed. blood pressure at lunch time was 120/61. dr hutchins notified. would start coreg tonight. blood pressure at 1533 was 161/107. dr hutchins notified and ordered hydralazine prn. will continue to monitor.
[2020-07-27] MEDS: hyDRALAzine 20 mg/mL INJ 1 mL 5 MG IVP (16:08)
--- NOTE | 2020-07-27 16:22 | PC.NURSE ---
prn hydralazine administered. will recheck blood pressure. will continue to monitor. call light within reach.
[2020-07-27] MEDS: carvedilol 3.125 mg Tablet PO (17:27)
--- NOTE | 2020-07-27 18:56 | PC.NURSE ---
Received report from NEISHA Gar. Patient resting on her left side. Eyes open spontaneously when entering the room. Patient is AAOx4. Discussed plan for cardiac stress test scheduled for 07/28/20. Patient verbalized complete understanding. Patient is able to ambulate ad fabrizio. Patient denies increased SOB, pain or other needs. No distress observed.
[2020-07-27] MEDS: enoxaparin 40 mg/0.4 mL Syringe SUBCUT (20:34)
--- NOTE | 2020-07-27 22:39 | USCV_ITS ---
Freda Perry Age: 55 Gender: F : 1965 Exam Date: 07/27/2020 06:00 Ordering Phys: Aniyah Gutierrez MD Technologist: Mary Holm [place] [facility] [place]: CHF BP: 170 / 96 HR: 72 Rhythm: Sinus Technical Quality: Adequate MEASUREMENTS (Male / Female) Normal Values 2D ECHO LV Diastolic Diameter PLAX 4.3 cm 4.2 - 5.9 / 3.9 - 5.3 cm LV Systolic Diameter PLAX 1.9 cm LV Chamber Size 2.9 cm IVS Diastolic Thickness 1.8 cm 0.6 - 1.0 / 0.6 - 0.9 cm IVS Systolic Thickness 2.1 cm LVPW Diastolic Thickness 2.0 cm 0.6 - 1.0 / 0.6 - 0.9 cm LVPW Systolic Thickness 2.5 cm RV Chamber Size 3.5 cm LVOT Diameter 2.1 cm LV Ejection Fraction 2D Teich 86.5 % LV Ejection Fraction MOD 2C 39.6 % LV Ejection Fraction 2C AL 39.9 % LA Diameter 4.3 cm LA Width 3.8 cm LA Height 5.5 cm RA Width 4.3 cm RA Height 3.9 cm Aorta at Sinotubular Diameter 2.3 cm M-MODE LV Diastolic Diameter MM 6.1 cm 4.2 - 5.9 / 3.9 - 5.3 cm LV Systolic Diameter MM 4.5 cm LV Ejection Fraction MM Teich 49.8 % IVS Diastolic Thickness MM 1.5 cm 0.6 - 1.0 / 0.6 - 0.9 cm IVS Systolic Thickness MM 2.2 cm LVPW Diastolic Thickness MM 1.4 cm 0.6 - 1.0 / 0.6 - 0.9 cm LVPW Systolic Thickness MM 1.7 cm Aortic Annulus Diameter 3.4 cm LA Ao Ratio MM 1.6 MV E Point Septal Separation 1.6 cm DOPPLER AV Peak Velocity 167.0 cm/s LVOT Peak Velocity 110.0 cm/s AV Area Cont Eq vti 2.2 cm squared AV Area Cont Eq pk 2.2 cm squared MV Area PHT 6.7 cm squared Mitral E to A Ratio 1.1 MV E' Velocity 54.0 cm/s Mitral E to MV E' Ratio 15.8 Mitral E to LV E' Lateral Ratio 15.3 Mitral E to LV E' Septal Ratio 16.6 TR Peak Velocity 215.5 cm/s TR Peak Gradient 18.6 mmHg TV Peak E Velocity 121.0 cm/s Right Atrial Pressure 3.0 mmHg Pulmonary Artery Systolic Pressu 21.6 mmHg PV Peak Velocity 112.0 cm/s RV Acceleration Time 0.1 s RV Ejection Time 0.3 s RV AcT/ET 0.4 FINDINGS Left Ventricle Normal left ventricular cavity size. Increased left ventricular wall thickness. Global left ventricular hypokinesis. Left ventricular ejection fraction is estimated at 40 %. Grade I/IV diastolic dysfunction (abnormal relaxation filling pattern), normal to mildly elevated filling pressures. Right Ventricle The right ventricle is normal in size and function. Right Atrium The right atrium is normal in size. Left Atrium The left atrium is normal in size. Mitral Valve Structurally normal mitral valve without significant stenosis or prolapse. There is no mitral regurgitation. Aortic Valve Structurally normal aortic valve without significant sclerosis or stenosis. There is no aortic regurgitation. Tricuspid Valve Structurally normal tricuspid valve without significant stenosis or regurgitation. Pulmonary artery systolic pressure is normal. Pulmonic Valve Structurally normal pulmonic valve without significant stenosis. There is no pulmonic regurgitation. Pericardium Normal pericardium without effusion. Aorta Normal ascending aorta dimension. CONCLUSIONS 1-Normal left ventricular cavity size. Increased left ventricular wall thickness. Global left ventricular hypokinesis. Left ventricular ejection fraction is estimated at 40 %. Grade I/IV diastolic dysfunction (abnormal relaxation filling pattern), normal to mildly elevated filling pressures. 2-There is no pericardial effusion. 3-No significant valve abnormalities. 4-Pulmonary artery systolic pressure is within normal limits. 5-Right atrial pressure is around 5 mm of mercury. 6-There are no prior echocardiogram studies to compare. Krystin Ford MD (Electronically Signed) Final Date: 28 July 2020 17:37 S
[2020-07-28] VITALS (9 sets, daily range): BP systolic 136–162; BP diastolic 69–99; PULSE 63–88; RESP 15–25; TEMP 36.6–36.8; O2SAT 90–96
[2020-07-28 05:53] LABS: Alanine Aminotransferase 31 U/L (0-33); Albumin Level 3.6 g/dL (3.5-5.2); Alkaline Phosphatase 123 IU/L (35-105); Anion Gap 13.2 (5-19); Aspartate Amino Transferase 28 U/L (0-32); Blood Urea Nitrogen 11 mg/dL (6-20); Calcium 9.1 mg/dL (8.5-10.5); Carbon Dioxide 27 mmol/L (22-29); Chloride 100 mmol/L (98-107); Creatinine Clr Calc Pharmacy 101.7704; Globulin 3.1 g/dL (1.3-4.6); Glomerular Filtration Rate 74.7 mL/min (90-130); Glucose 116 mg/dL (65-115); Osmolality Calculated 284 mOsm/kg (285-295); Potassium 3.2 mmol/L (3.5-5.1); Sodium 137 mmol/L (136-145); Total Bilirubin 0.6 mg/dL (0.15-1.2); Total Protein 6.7 g/dL (6.6-8.7)
--- NOTE | 2020-07-28 07:40 | NMCV_ITS ---
NM nelly perf SPECT r/s* [id number] Freda Perry Age: 55 Gender: F : 1965 Exam Date: 07/28/2020 08:28 Ordering Phys: Ravindra Headley MD Technologist: Thania Fontenot Exam Location: [facility] Indications: Diff breathing STRESS TEST Please see separate stress test report in [facility] for full findings IMAGE PROTOCOL Rest/Stress 1 Lexiscan Day Radiopharmaceutical Dose (mCi) Administration Site Administered by Rest: Tc-99m 10.8 IV Gee Mendez, ISAIAH Sestamibi Stress:Tc-99m 32.7 IV ISAIAH Christiansen Sestamibi Rest: 28-Jul-2020 60 Discovery 630 Stress: 28-Jul-2020 45 Discovery 630 0.4mg Lexiscan. Images obtained in supine and prone position. SPECT RESULTS Technical Quality: Good Raw Data Analysis: Breast attenuation, Soft tissue attenuation Image Corrections: No attenuation or motion correction applied Summed Stress Score: 0 Summed Rest Score: 3 Summed Difference Score: 0 PERFUSION FINDINGS Large area of patchy decreased tracer uptake noted in basal to distal anterior basal to distal inferior and inferoseptal wall on the rest images which improved significantly over stress images suggestive of artifact FUNCTIONAL RESULTS (calculated via Gated SPECT) Stress Image LV EF (%): 27 Stress EDV (mL):196 TID: 1.02 Stress ESV (mL):143 FUNCTIONAL FINDINGS: Global hypokinesis IMPRESSIONS This study is negative for ischemia. EKG segment will be documented separately. Krystin Ford MD (Electronically Signed) Final Date: 28 July 2020 16:34 S
[2020-07-28] MEDS: clopidogrel 75 mg Tablet PO (08:34)
[2020-07-28] MEDS: levothyroxine 150 mcg Tablet 75 MCG PO (08:34)
[2020-07-28] MEDS: carvedilol 3.125 mg Tablet PO (08:34)
[2020-07-28] MEDS: duloxetine 30 mg Capsule PO (08:34)
[2020-07-28] MEDS: FUROsemide 10 mg/mL SDV 4mL 40 MG IVP ×2 (08:34→17:13)
[2020-07-28] MEDS: lisinopril 10 mg Tablet PO (08:35)
--- NOTE | 2020-07-28 09:27 | SUR.PREOP ---
Patient reports no pain or discomfort prior to the start of the procedure.
[2020-07-28] MEDS: regadenoson 0.4 Mg/5 ml Syringe IVP (09:28)
[2020-07-28] MEDS: potassium chloride ER 10 mEq Tablet 80 MEQ PO (10:56)
--- NOTE | 2020-07-28 11:14 | PC.NURSE ---
pt back from stress test. resting in bed. blood pressure 144/84. potassium given per order. call light within reach, will continue to monitor.
--- NOTE | 2020-07-28 14:01 | P.PN_ITS ---
Subjective Subjective: Interval history: No acute events overnight. This morning seen after stress test. Blood pressure has been better controlled though mildly elevated. Patient has remained comfortable. Overall documented urine output in last 24 hours more than 3 L. Vitals/I&O/Wt Last Vital Signs Temp 97.9 F 07/28/20 10:55 Pulse 77 07/28/20 10:55 Resp 24 H 07/28/20 10:55 BP 144/86 07/28/20 10:55 Pulse Ox 91 07/28/20 10:55 07/27/20 07/28/20 07/28/20 22:59 06:59 14:59 Intake Total 263 / 1223 900 / 2123 720 / 720 Output Total 2100 / 4600 700 / 5300 650 / 650 Balance -1837 / -3377 200 / -3177 70 / 70 Weight last 48 hrs Weight 125.328 kg Weight 126.28 kg Weight 124.738 kg Physical Exam Narrative: EXAM NARRATIVE: General: No acute distress, AO x3, morbidly obese HEENT: PERRLA, pupils bilaterally equal and reactive Chest: Normal vesicular breath sounds, decreased breath sounds all over the lung lyn, no added sounds, equal good air entry bilaterally CVS: S1-S2 regular, no murmurs, no tachycardia, no gallops, no rubs Abdomen: Soft, nontender, no organomegaly, bowel sounds present Neuro: No focal deficits, no facial deformity, AO x3, power 5/5 in all limbs Data : 07/27/20 04:38 07/28/20 04:29 A&P Assessment and plan (1) Hypertensive urgency: Status: Acute (2) Congestive heart failure: Status: Acute Qualifiers: Heart failure chronicity: unspecified Heart failure type: unspecified Qualified Code(s): I50.9 - Heart failure, unspecified (3) Chest pain: Status: Acute Qualifiers: Chest pain type: unspecified Qualified Code(s): R07.9 - Chest pain, u nspecified (4) Acute dyspnea: Status: Acute (5) Morbid obesity: Status: Acute (6) CHANDNI (obstructive sleep apnea): Status: Acute (7) Hypertension: Status: Chronic Qualifiers: Hypertension type: essential hypertension Qualified Code(s): I10 - Essential (primary) hypertension (8) Hypothyroidism: Status: Chronic Qualifiers: Hypothyroidism type: acquired Qualified Code(s): E03.9 - Hypothyroidism, unspecified (9) Left bundle branch block (LBBB): Status: Acute Additional A&P Information 55-year-old lady with a past medical history of hypertension, obstructive sleep apnea not on CPAP, morbid obesity currently presenting with hypertensive urgency, atypical chest pain, worsening dyspnea on exertion over the past 3 weeks and orthopnea for last 1 week. Hypertensive urgency: Initial blood pressure on presentation noted to be 212/113. EKG showing left bundle branch block. No old EKG in the system to compare. Troponin cycles have remained negative. Goal blood pressure of less than 140/90 mmHg. New congestive heart failure: With a history of orthopnea, elevated BNP on admission. Could be related to CAD versus diastolic heart failure from persistent obstructive sleep apnea and hypertension versus myocarditis from recent viral infection in last 1 month. Rapid Covid antigen negative in the ER, PCR negative on July 18. CTA PE negative for pulmonary embolism. Echocardiogram done but results awaited. For now continue with IV Lasix 40 mg twice daily. Daily weights. Strict input output charting. Overall patient 3.5 L net negative since admission. Repeat chest x-ray and proBNP today. Patient saturating more than 90% on room air lying comfortably in bed. Continue with lisinopril 10 mg daily, increase carvedilol to 6.25 mg twice daily, continue Lasix 40 mg twice daily IV for now. Will uptitrate the medications as per the blood pressure and echo results. Can also plan to add hydralazine. Atypical chest pain/LBBB: Not sure if LBBB is new versus old. Troponin cycle have remained negative. Stress test done today. Results awaited. Will change medications accordingly. Lipid panel, HbA1c, TSH results appreciated. Continue with Plavix 75 mg daily as patient is allergic to aspirin with hives. Hypothyroidism: Continue levothyroxine 75 mcg p.o. daily Pseudogout, patient appears to be on colchicine daily. Currently reporting diarrhea, will hold colchicine for now and monitor. Obstructive sleep apnea. Morbid obesity. Depression/anxiety. Replete potassium. Full code DVT ppx: lovenox. Cardiac diet, Attestations Medical Necessity Statement*: Course of hospitalization for management of new congestive heart failure, to rule out ACS, management of hypertensive urgency. Time Spent in Patient Care: Greater than 35 minutes (>than 50% of time spent in counselling and/or direct pt care on unit) . Coding Level of Care Code Acute Finishing Pan Operator for Chg Fwd Diagnoses Hypertensive urgency I16.0 Congestive heart failure I50.9 Heart failure chronicity: unspecified Heart failure type: unspecified Chest pain R07.9 Chest pain type: unspecified Acute dyspnea R06.00 Morbid obesity E66.01 CHANDNI (obstructive sleep apnea) G47.33 Hypertension I10 Hypertension type: essential hypertension Hypothyroidism E03.9 Hypothyroidism type: acquired Left bundle branch block (LBBB) I44.7
--- NOTE | 2020-07-28 14:04 | XR_ITS ---
WS: [id number] Exam: XR chest 1V portable [id number] Date/Time of Exam: 07/28/2020 2:11 PM Reason For Exam: CHF Comparison 07/26/2020. The lungs are clear. Normal cardiomediastinal structures and regional bony elements. No pleural effus ion. XR/XR chest 1V portable [id number] IMPRESSION: 1. No acute cardiopulmonary finding. No change.
[2020-07-28 15:46] LABS: NT Pro B Type Natriuretic Pept 1029 pg/mL (0-125)
[2020-07-28] MEDS: carvedilol 6.25 mg Tablet PO (17:13)
--- NOTE | 2020-07-28 18:07 | PC.NURSE ---
pt resting in bed at this time. night medications were taken, no needs at this time. pt had an uneventful shift.
[2020-07-28] MEDS: enoxaparin 40 mg/0.4 mL Syringe SUBCUT (21:07)
[2020-07-29 03:47] VITALS: BP 148/81; PULSE 71; RESP 16; TEMP 37; O2SAT 96
[2020-07-29 05:45] LABS: Basophils # 0.1 10^3/uL (0.0-0.1); Basophils % 0.6 %; Eosinophils # 0.4 10^3/uL (0.0-0.8); Eosinophils % 5.3 %; Hemoglobin 14.3 g/dL (11.5-15.3); Lymphocytes # 2.6 10^3/uL (0.8-4.8); Lymphocytes % 31.7 %; Mean Corpuscular HGB Conc 32.5 g/dL (30.0-36.0); Mean Corpuscular Volume 92.4 fL (81-99); Monocytes # 1.2 10^3/uL (0.2-0.9); Monocytes % 14.8 %; Neutrophils % 47.4 %; Nucleated Red Blood Cells % 0 %; Platelet Count 162 10^3/cmm (130-400); Red Blood Count 4.76 10^6/uL (4.1-5.3); Red Cell Distribution Width 13.2 % (12.1-15.1); White Blood Count 8.2 10^3/uL (4.0-10.0)
[2020-07-29 06:04] LABS: Alanine Aminotransferase 29 U/L (0-33); Albumin Level 3.7 g/dL (3.5-5.2); Alkaline Phosphatase 115 IU/L (35-105); Aspartate Amino Transferase 27 U/L (0-32); Blood Urea Nitrogen 16 mg/dL (6-20); Calcium 9.4 mg/dL (8.5-10.5); Carbon Dioxide 28 mmol/L (22-29); Chloride 100 mmol/L (98-107); Globulin 3.1 g/dL (1.3-4.6); Glomerular Filtration Rate 57.8 mL/min (90-130); Glucose 101 mg/dL (65-115); Osmolality Calculated 287 mOsm/kg (285-295); Sodium 138 mmol/L (136-145); Total Bilirubin 0.5 mg/dL (0.15-1.2); Total Protein 6.8 g/dL (6.6-8.7)
[2020-07-29 08:00] VITALS: BP 154/96; PULSE 84; RESP 19; TEMP 36.4; O2SAT 98
--- NOTE | 2020-07-29 08:00 | PC.NURSE ---
pt resting in bed stated that she felt better and hoped to go home today. call light within reach, will continue to monitor.
[2020-07-29 08:30] VITALS: PULSE 74; RESP 16; O2SAT 95
[2020-07-29] MEDS: clopidogrel 75 mg Tablet PO (09:21)
[2020-07-29] MEDS: duloxetine 30 mg Capsule PO (09:21)
[2020-07-29] MEDS: FUROsemide 10 mg/mL SDV 4mL 40 MG IVP (09:21)
[2020-07-29] MEDS: carvedilol 6.25 mg Tablet PO (09:21)
[2020-07-29] MEDS: levothyroxine 150 mcg Tablet 75 MCG PO (09:21)
[2020-07-29] MEDS: lisinopril 10 mg Tablet PO (09:21)
--- NOTE | 2020-07-29 09:22 | DCPLANNER ---
IMM completed on 07/29/2020 @ 6873. Copy of rights given to pt.
--- NOTE | 2020-07-29 10:00 | PC.NURSE ---
dr hutchins discussed dc later with meds to bed.
--- NOTE | 2020-07-29 11:45 | PM.DCS ---
Discharge Providers Date of Admission: 07/26/20 20:18 Date of Discharge: July 29, 2020 Attending Provider at Admission: Aniyah Gutierrez MD Attending Provider at Discharge: Ravindra Headley MD Primary Care Provider: ROMINA Thompson Diagnoses at Discharge Discharge Diagnosis (1) Hypertensive urgency: Status: Acute (2) Congestive heart failure: Status: Acute Qualifiers: Heart failure chronicity: unspecified Heart failure type: unspecified Qualified Code(s): I50.9 - Heart failure, unspecified (3) Chest pain: Status: Acute Qualifiers: Chest pain type: unspecified Qualified Code(s): R07.9 - Chest pain, unspecified (4) Acute dyspnea: Status: Acute (5) Morbid obesity: Status: Acute (6) CHANDNI (obstructive sleep apnea): Status: Acute (7) Hypertension: Status: Chronic Qualifiers: Hypertension type: essential hypertension Qualified Code(s): I10 - Essential (primary) hypertension (8) Hypothyroidism: Status: Chronic Qualifiers: Hypothyroidism type: acquired Qualified Code(s): E03.9 - Hypothyroidism, unspecified (9) Left bundle branch block (LBBB): Status: Acute Reason for Visit Reason for Visit: DIFF BREATHING Hospital Course Discharge Summary: Freda Perry is a 55 year old female with a past medical history of hypertension, obstructive sleep apnea not on CPAP, spinal stenosis, gout, hypothyroidism who presented to the ER today with chief complaints of shortness of breath. She reports pain in her usual state of health until about 3 weeks ago when she developed complaints of dyspnea on exertion which has progressed over the past 3 weeks. At the onset of symptoms she also noted to have cough which was nonproductive. At the time she thought that her illness was related to being exposed to sick contacts at home by way of grandson with URI symptoms and her niece who had recently tested positive for COVID-19. Patient herself was also tested for Covid by PCR on July 18 which resulted negative. Rapid antigen today is also negative. She denies any complains of fever over this this timeframe. Since the onset of symptoms she states that her dyspnea has progressed to the point where she needs assistance in moving from bed to her bathroom. Reports that she has usually chronic joint pains, however over this same time she has noticed a retrosternal and right shoulder pain on exertion, which is new for her. Overall she states that her arthritic pains have been improving in the past 3 to 4 months after being given spinal injections for what appears to be is spinal stenosis. She has intentionally lost about 30 pounds since the beginning of the year by exercising had had in fact been feeling improved until about 3 weeks ago. Last weekend she developed sudden shortness of breath while lying down, EMS was called to her home and she was noted to be hypertensive with systolic blood pressure up to 190s and O2 sat of 89%. She elected not to come to the ER at that time. She had a repeat episode this weekend as well, visited her primary care provider this morning and was noted to be hypertensive. Her O2 sats at that time were noted to be in the 90s. For her chest pain and dyspnea she was advised to come into the ER. Diagnostics in the ER thus far show EKGs with sinus rhythm, left bundle branch block of unknown duration, T wave inversions in lead I to V6 and possible LVH per my read. Baseline troponin at 37, subsequently at 40 and then 38, unremarkable delta's. BNP elevated at 2200. D-dimer noted to be mildly elevated following which he underwent a CTA of the chest. This was negative for PE. Number bilateral small volume pleural effusions and left ventricular prominence together with hepatosplenomegaly. Upon arrival to the ER her blood pressure was 213/121 for which she received IV labetalol with improvement in blood pressure to 154/83. Oxygen saturation has remained between 95 to 98% on room air. Rapid COVID-19 antigen was negative in the ER and patient recently had COVID-19 PCR negative few days ago. She was admitted to the cardiac stepdown unit with symptoms of congestive heart failure and treated with IV diuretics. On admission she was started on nitro drip for hypertensive urgency and was transitioned over to antihypertensives which were adjusted with goal blood pressure of 140/90 mmHg. She responded well to the treatment. Her EKG was consistent with left bundle branch block. Echocardiogram was done which showed EF of 40% with global LV hypokinesia with grade 1 diastolic dysfunction. She underwent Lexiscan stress test on July 28 which is negative for any signs of ischemia with a EF of around 27%. For new EF of 40% can be secondary to uncontrolled hypertension versus viral cardiomyopathy due to possible viral illness going on for last 1 month or could be due to uncontrolled obstructive sleep apnea. Patient is been discharged hemodynamically stable condition with adjusted antihypertensives with advised to follow-up with her primary care provider in 1 week to repeat CMP with a blood pressure chart. She is also advised to follow-up with cardiology in 2 months for repeat echocardiogram. She is also advised to follow-up with her primary care provider for repeat sleep study so that she can start using CPAP for obstructive sleep apnea. Physical Exam Narrative: EXAM NARRATIVE: General: No acute distress, AO x3, morbidly obese HEENT: PERRLA, pupils bilaterally equal and reactive Chest: Normal vesicular breath sounds, decreased breath sounds all over the lung lyn, no added sounds, equal good air entry bilaterally CVS: S1-S2 regular, no murmurs, no tachycardia, no gallops, no rubs Abdomen: Soft, nontender, no organomegaly, bowel sounds present Neuro: No focal deficits, no facial deformity, AO x3, power 5/5 in all limbs Discharge Data Data Completed and Pending: Completed Studies During Hospitalization Category Date Time Status CT angio chest PE protcl [id number] Urge nt Cat Scan 07/26/20 18:19 Completed Sestamibi Stress Test Request Routi ne Exams 07/27/20 11:04 Draft XR chest 1V andreina ble [id number] Routine Exams 07/28/20 14:04 Completed XR chest 1V andreina ble [id number] Stat Exams 07/26/20 16:54 Completed NM nelly perf SPECT r/s* [id number] Routin e Nuc Med 07/28/20 07:40 Completed CV echo complete* [id number] Routine Ultrasound 07/27/20 22:39 Completed Labs from last 24 hours 07/29/20 07/29/20 07/28/20 04:20 04:20 15:08 WBC 8.2 RBC 4.76 Hgb 14.3 Hct 44.0 MCV 92.4 MCH 30.0 MCHC 32.5 RDW 13.2 Plt Count 162 MPV 10.0 Neut % (Auto) 47.4 Lymph % (Auto) 31.7 [place] % (Auto) 14.8 Eos % (Auto) 5.3 Baso % (Auto) 0.6 Neut # (Auto) 3.90 Lymph # (Auto) 2.6 [place] # (Auto) 1.2 H Eos # (Auto) 0.4 Baso # (Auto) 0.1 Nucleated RBC % (a uto) 0 Nucleated RBCs # 0.0 Sodium 138 Potassium 4.0 Chloride 100 Carbon Dioxide 28 Anion Gap 14.0 BUN 16 Creatinine 1.0 H GFR Calculation 57.8 L Glucose 101 Calculated Osmolal ity 287 Calcium 9.4 Total Bilirubin 0.5 AST 27 ALT 29 Alkaline Phosphata se 115 H NT-Pro-B Natriuret Pep 1029 H Total Protein 6.8 Albumin 3.7 Globulin 3.1 Vitals: Last Vital Signs Temp 97.6 F 07/29/20 08:00 Pulse 74 07/29/20 08:30 Resp 16 07/29/20 08:30 BP 154/96 07/29/20 08:00 Pulse Ox 95 07/29/20 08:30 Discharge Plan Discharge Patient Disposition: Home Condition: Stable Prescriptions: New carvedilol 6.25 mg Tablet 6.25 mg PO BID Qty: 60 RF: 0 clopidogrel 75 mg Tablet 75 mg PO DAILY Qty: 30 RF: 0 lisinopril 10 mg Tablet 20 mg PO DAILY Qty: 60 RF: 0 Lasix 40 mg tablet 40 mg PO BID Qty: 60 RF: 0 Continued albuterol sulfate [ProAir HFA] 90 mcg/actuation HFA aerosol inhaler 2 puff INHALATION Q6H PRN (Reason: shortness of breath or wheezing) Qty: 18 RF: 0 diclofenac sodium 1 % gel See Rx Instructions .ROUTE .COMPLEX Qty: 300 RF: 2 Tylenol Extra Strength 500 mg Tablet 1,000 mg PO PRN RF: 0 duloxetine 30 mg capsule,delayed release(DR/EC) 30 mg PO DAILY RF: 0 Probiotic 1 cap PO PRN RF: 0 Synthroid 75 mcg tablet 75 mcg PO DAILY RF: 0 Colcrys 0.6 mg tablet 0.6 mg PO BID RF: 0 Discontinued metoprolol tartrate 25 mg tablet See Rx Instructions .ROUTE .COMPLEX RF: 0 prednisone 20 mg tablet 40 mg PO .Daily in A.M. PRN (Reason: lower respiratory infection) 5 Days Qty: 10 RF: 0 azithromycin 250 mg tablet See Rx Instructions PO .COMPLEX Qty: 6 RF: 0 cephalexin [Keflex] 500 mg capsule 500 mg PO BID 7 Days Qty: 14 RF: 0 hydrochlorothiazide 12.5 mg tablet 12.5 mg PO DAILY RF: 0 Discharge Orders: Discharge Order (Routine); Ordered 07/29/20 Ordered By: Ravindra Headley Referrals: MG Ham, ROMINA [Primary Care Provider] - 7-10 days Richard Kaiser M.D [Physician] - 2 months Discharge Diet: Cardiac and Low Salt Discharge Activity: Resume usual activity Activity Restrictions/Additional Instructions: You are on new blood pressure medications now. You will be on Coreg 6.25 mg twice daily, lisinopril 20 mg daily, Lasix 40 mg twice daily times Plavix 75 mg once daily going forward. Please follow-up with your primary care provider in next 1 week for a repeat CMP. Please follow-up with [facility] in 2 months for repeat echocardiogram. Please check your blood pressure at least twice every day and maintain a blood pressure diary and take it when you follow-up with your primary care provider. Discharge Attestations Time Spent in Discharge Care*: greater than 30 min Specific Discharge Activities: Specific discharge activities: educating patient, discussing with family independence case manager/social workers/dc planners, documenting/other paperwork and evaluating patient/reviewing data Status at Discharge: Cognitive status at discharge: cognitively intact, Behavioral status at discharge: cooperative, Functional status at discharge: independent ambulation Overall status at discharge: patient is back to baseline Quality Metrics Clinical Quality Measures During this hospital stay, did patient experience: None Coding Level of Care Code Acute Sock Lining Stitcher for Chg Fwd Diagnoses Hypertensive urgency I16.0 Congestive heart failure I50.9 Heart failure chronicity: unspecified Heart failure type: unspecified Chest pain R07.9 Chest pain type: unspecified Acute dyspnea R06.00 Morbid obesity E66.01 CHANDNI (obstructive sleep apnea) G47.33 Hypertension I10 Hypertension type: essential hypertension Hypothyroidism E03.9 Hypothyroidism type: acquired Left bundle branch block (LBBB) I44.7
[2020-07-29 12:00] VITALS: BP 119/71; PULSE 85; RESP 18; O2SAT 98
[2020-07-29 12:31] VITALS: BP 119/71; PULSE 74; RESP 16; TEMP 36.7; O2SAT 95
--- NOTE | 2020-07-29 14:00 | PC.NURSE ---
discharge instructions given. all questions answered, meds delivered from [facility]. iv removed, tip intact pt ambulated to wheelchair and escorted out to er where private vehicle picked her up.
== END 2020-07-29 14:07 | disposition home or self-care (01) | DRG 291 ==
LOC: ER 20:19 → CSU 07-27 09:03
PROVIDERS: Emergency Medicine; Admitting Provider Student in an Organized Health Care Education/Training Program; PCP Nurse Practitioner Family; Visit Provider Student in an Organized Health Care Education/Training Program
DX: I11.0 Hypertensive heart disease with heart failure (principal); I50.21 Acute systolic (congestive) heart failure; Z68.43 Body mass index [BMI] 50.0-59.9, adult; I16.0 Hypertensive urgency; M50.30 Other cervical disc degeneration, unspecified cervical region; M11.262 Other chondrocalcinosis, left knee; E03.9 Hypothyroidism, unspecified; I44.7 Left bundle-branch block, unspecified; E78.2 Mixed hyperlipidemia; E66.01 Morbid (severe) obesity due to excess calories; G47.33 Obstructive sleep apnea (adult) (pediatric); R07.9 Chest pain, unspecified
CPT/HCPCS: 12345; 36415; 71045; 71275; 78452; 80053; 80061; 83036; 83880; 84443; 84484; 85025; 85378; 87426; 93005; 93017; 93306; 96372; 96375; 99284; A9500; J0360; J1650; J1940; J2785; J3490; Q9967

== ENCOUNTER → 2020-08-09 12:46 | Outpatient (BNVA) | payer MEDICARE, MEDICAID, SELFPAY | PROVIDERS: PCP Nurse Practitioner Family; Visit Provider Nurse Practitioner Family | DX: I50.9 Heart failure, unspecified (principal) | CPT/HCPCS: 80053 ==

== ENCOUNTER 2020-08-16 | Emergency (ER) | payer MEDICARE, MEDICAID, SELFPAY ==
[2020-08-16 00:06] VITALS: BP 103/71; PULSE 74; RESP 17; TEMP 36.8; O2SAT 96; BMI 46.5
--- NOTE | 2020-08-16 00:31 | XR_ITS ---
WS: [id number] Exam: XR chest 1V portable [id number] Date/Time of Exam: 08/16/2020 12:31 AM Reason For Exam: chest pain Comparison 07/28/2020. The lungs are clear and fully expanded. Normal cardiomediastinal structures. Calcified granulomas in both lungs. Regional bony elements appear normal. Monitoring leads superimpose the chest. XR/XR chest 1V portable [id number] IMPRESSION: 1. No acute cardiopulmonary finding. No change.
--- NOTE | 2020-08-16 00:31 | ECG_ITS ---
[facility] Test Date: 2020-08-16 Pat Name: Freda Perry Department: Room: Gender: Female Stamp Classifier: : 1965 Requested By: Dalia Bxater Order Number: [id number] Anahi MD: Krista Mercado M.D. Measurements Intervals [place] Rate: 84 P: 38 MI: 159 QRS: 15 QRSD: 174 T: 190 QT: 427 QTc: 506 Interpretive Statements SINUS RHYTHM POSSIBLE LEFT ATRIAL ENLARGEMENT [-0.1mV P WAVE IN V1/V2] LEFT BUNDLE BRANCH BLOCK [120+ ms QRS DURATION, 80+ ms Q/S IN V1/V2, 85+ ms R IN I/aVL/V5/V6] Compared to ECG 07/26/2020 18:49:49 Short MI interval no longer present Electronically Signed On 08-16-2020 21:45:26 SUSTAINABLE DESIGN CONSULTANT by Krista Mercado M.D. [id number]
[2020-08-16 00:38] LABS: Basophils % 0.2 %; Eosinophils # 0.1 10^3/uL (0.0-0.8); Eosinophils % 0.7 %; Hematocrit 48.3 % (37.0-47.0); Hemoglobin 15.8 g/dL (11.5-15.3); Lymphocytes # 1.8 10^3/uL (0.8-4.8); Lymphocytes % 14.7 %; Mean Corpuscular HGB Conc 32.7 g/dL (30.0-36.0); Mean Corpuscular Hemoglobin 29.8 pg (28.0-34.0); Mean Platelet Volume 9.8 fL (7.4-10.4); Monocytes # 0.7 10^3/uL (0.2-0.9); Monocytes % 5.6 %; Neutrophils # 9.62 10^3/uL (1.8-7.7); Neutrophils % 78.5 %; Nucleated Red Blood Cells % 0 %; Platelet Count 226 10^3/cmm (130-400); Red Blood Count 5.31 10^6/uL (4.1-5.3); Red Cell Distribution Width 12.9 % (12.1-15.1); White Blood Count 12.2 10^3/uL (4.0-10.0)
[2020-08-16 00:47] LABS: INR 0.99 (0.8-1.2)
[2020-08-16] MEDS: diphenhydrAMINE 50 mg/mL SDV 1mL IVP (00:50)
[2020-08-16 00:52] VITALS: BP 115/73; PULSE 79; RESP 17; O2SAT 96
[2020-08-16] MEDS: famotidine 20 mg/2 mL INJ 40 MG IVP (00:52)
[2020-08-16 01:01] LABS: Alanine Aminotransferase 39 U/L (0-33); Albumin Level 3.8 g/dL (3.5-5.2); Alkaline Phosphatase 120 IU/L (35-105); Blood Urea Nitrogen 18 mg/dL (6-20); Calcium 9.2 mg/dL (8.5-10.5); Carbon Dioxide 25 mmol/L (22-29); Chloride 96 mmol/L (98-107); Globulin 3.4 g/dL (1.3-4.6); Glomerular Filtration Rate 42.7 mL/min (90-130); Glucose 185 mg/dL (65-115); Lipase 36 U/L (13-60); Osmolality Calculated 287 mOsm/kg (285-295); Sodium 135 mmol/L (136-145); Total Bilirubin 0.8 mg/dL (0.15-1.2); Total Protein 7.2 g/dL (6.6-8.7)
[2020-08-16 01:02] LABS: Troponin(5th) Baseline 18 ng/L (0-10)
[2020-08-16 01:03] LABS: Anion Gap 18.5 (5-19); Aspartate Amino Transferase 47 U/L (0-32); Potassium 4.5 mmol/L (3.5-5.1)
--- NOTE | 2020-08-16 02:23 | ED_ITS ---
HPI - Chest Pain General: Chief Complaint: Chest Pain Stated Complaint: rash Time Seen by Provider: 08/16/20 00:23 History of Present Illness: HPI narrative: This patient is a 55-year-old woman who presents today with various complaints. She is concerned about an urticarial rash that woke her up from sleep during the night last night. She is never had anything like that before. She says it is burning and itching. It has progressively gotten worse throughout the day. When she first got up this morning she threw up once. She went back to sleep and still did not feel very well when she got up this afternoon. She was able to eat and ate some chili b eans . The rash continued to get worse and she decided to come to the ER for evaluation. On the way here this evening she threw up again. After she threw up on the way here she started having pain in her breastbone . She was admitted to the hospital at the end of last month with heart issues. She was started on 4 new medications at that time. She cannot think of anything else that might have been causing an allergic reaction other than that she did dye her hair a few days ago. She had used the same hair dye in the past without complications. MD complaint: chest heaviness and other (Hives, vomiting) Pertinent past history: coronary artery disease Onset (ago): hour(s) (Hives started about 24 hours ago. Chest pain just started on the way here.) Timing of current episode: constant Prior episodes: Yes Onset: other (With vomiting) Pain location: substernal Associated symptoms: Reports nausea and vomiting; Deny abdominal pain, dyspnea or fever(s) Review of Systems General: Reports: 10 or more systems reviewed and unremarkable except in HPI and below Const: Reports: malaise; Denies: fever(s), chills or fatigue Eyes: Denies: change in vision ENMT: Denies: odynophagia Card: Reports: chest pain; Denies: swelling of feet/ankles Resp: Denies: dyspnea, productive cough or non-productive cough GI: Reports: nausea and vomiting; Denies: abdominal pain : Denies: flank pain or difficulty voiding Musc: Denies: neck pain or back pain Skin/Breast: Denies: rash Neuro: Denies: headache(s), numbness in extremities or weakness in extremities Jace/Lymph: Denies: easy bruising or easy bleeding COUNTS INCLUDE 234 BEDS AT THE [facility] ED PFS: Medical History (Updated 08/16/20 @ 05:23 by Dalia Coughlin MD) Breast cancer screening by mammogram Chest pain Chest pain Hypertension Hypothyroidism Left bundle branch block (LBBB) Mixed hyperlipidemia Morbid obesity Obesity Patient has been followed for one year for planned bariatric weight loss surgery. CHANDNI (obstructive sleep apnea) Pseudogout of left knee Sleep apnea Synovial cyst of popliteal space [Ascencio], left knee Surgical History History of bladder surgery (1996) History of cholecystectomy (1992) History of ear surgery (2011) Right ear construction and left ear tube placed History of hysterectomy (1995) History of tonsillectomy and adenoidectomy History of tubal ligation (1989) Family History Sister Diabetes Grandmother Diabetes Mother Hypoglycemia Other Cancer Denies family history of Anesthesia complication Bleeding disorder Social History Smoking and tobacco status: never smoked Second hand smoke exposure: No Smoking risk assessment/counseling performed?: No Alcohol intake: never Desire information about alcohol rehabilitation?: No Counseling given: No Desire information about substance/drug rehabilitation?: No Counseling given: No Lives independently: Yes Household members: children Current occupational status: disabled History of recent travel: No Special brissa needs: No Agree to transfusion: No Physical Exam Const: COMMON NORMALS: no acute distress, patient oriented x3, no limitations and alert GENERAL APPEARANCE: cooperative and comfortable NUTRITIONAL APPEARANCE: obese HENMT: HEAD & SCALP: normal to inspection FACE & SINUS: normal facial exam Eye: GENERAL EYE: appearance normal, both eyes and all related structures Neck/C-Spine: COMMON NORMALS: supple, no meningeal signs and no JVD Chest: COMMONS NORMALS: normal inspection of the chest Resp: COMMON NORMALS: normal respiratory effort, No use of accessory muscles and clear to auscultation bilaterally AUSCULTATION: clear to auscultation bilaterally Cardio: COMMON NORMALS: no JVD, regular rate, regular rhythm and No murmurs present (Cardio) RATE: regular rate RHYTHM: regular rhythm GI: COMMON NORMALS: Normal to inspection, nondistended, normoactive bowel sounds present, Soft to palpation and non-tender INSPECTION: Yes normal to inspection AUSCULTATION: Yes normoactive bowel sounds PALPATION: Yes Soft to palpation Back/Pelvis: COMMON NORMALS: thoracic and lumbar spine normal to inspection Extremity: COMMON NORMALS: normal to inspection Neuro: COMMON NORMALS: patient oriented x3, moves all extremities, no focal motor deficits and no sensory deficits noted SENSORIUM/ORIENTATION: Yes alert MENINGEAL SIGNS: Yes no meningeal signs Psych: COMMON NORMALS: mental status grossly normal, cooperative and normal affect Skin: COMMON NORMALS: turgor normal GENERAL SKIN EXAM: turgor normal RASHES: rashes noted (Urticarial rash over her entire body) Course ED course: The hives improved quite a bit with treatment in the ER. She did not have any further chest pain. Work-up in the ER was unremarkable. We discussed the possibility that some of the new medications she is could be causing this rash. I do not think she should stop any of them without discussing that with her outpatient physicians. I am going to send her home on some steroids and Pepcid and hopefully she will not have any more problems. She will call her primary care physician to discuss this in the morning. Vital Signs: Vital signs: Vital Signs Temperature 98.2 F 08/16/20 00:06 Pulse Rate 83 08/16/20 05:33 Respiratory Rate 18 08/16/20 05:33 Blood Pressure 122/73 08/16/20 05:33 Pulse Oximetry 96 08/16/20 05:33 MDM - Chest Pain Lab Data: Labs: Lab Results 08/16/20 08/16/20 08/16/20 Range/Units 00:35 00:35 00:35 WBC 12.2 H (4.0-10.0) 10^3/ uL RBC 5.31 H (4.1-5.3) 10^6/u L Hgb 15.8 H (11.5-15.3) g/dL Hct 48.3 H (37.0-47.0) % MCV 91.0 (81-99) fL MCH 29.8 (28.0-34.0) pg MCHC 32.7 (30.0-36.0) g/dL RDW 12.9 (12.1-15.1) % Plt Count 226 (130-400) 10^3/c mm MPV 9.8 (7.4-10.4) fL Neut % (Auto) 78.5 % Lymph % (Auto) 14.7 % [place] % (Auto) 5.6 % Eos % (Auto) 0.7 % Baso % (Auto) 0.2 % Neut # (Auto) 9.62 H (1.8-7.7) 10^3/u L Lymph # (Auto) 1.8 (0.8-4.8) 10^3/u L [place] # (Auto) 0.7 (0.2-0.9) 10^3/u L Eos # (Auto) 0.1 (0.0-0.8) 10^3/u L Baso # (Auto) 0.0 (0.0-0.1) 10^3/u L Nucleated RBC % (a uto) 0 % Nucleated RBCs # 0.0 /100WBC PT 13.40 (12.1-14.9) SECO NDS INR 0.99 (0.8-1.2) Sodium 135 L (136-145) mmol/L Potassium 4.5 (3.5-5.1) mmol/L Chloride 96 L (98-107) mmol/L Carbon Dioxide 25 (22-29) mmol/L Anion Gap 18.5 (5-19) BUN 18 (6-20) mg/dL Creatinine 1.3 H (0.5-0.9) mg/dL GFR Calculation 42.7 L (90-130) mL/min Glucose 185 H (65-115) mg/dL Calculated Osmolal ity 287 (285-295) mOsm/k g Calcium 9.2 (8.5-10.5) mg/dL Total Bilirubin 0.8 (0.15-1.2) mg/dL AST 47 H (0-32) U/L ALT 39 H (0-33) U/L Alkaline Phosphata se 120 H (35-105) IU/L Troponin T Baselin e (0-10) ng/L Troponin T 120 Min [place] (0-10) ng/L Delta Troponin T (0-10) ABS# Total Protein 7.2 (6.6-8.7) g/dL Albumin 3.8 (3.5-5.2) g/dL Globulin 3.4 (1.3-4.6) g/dL Lipase 36 (13-60) U/L Urine Color (Yellow) Urine Appearance (CLEAR) Urine pH (5-7) Ur Specific Gravit y (1.005-1.030) Urine Protein (Negative) Urine Glucose (UA) (Normal) Urine Ketones (Negative) Urine Blood (Negative) Urine Nitrate (Negative) Urine Bilirubin (Negative) Urine Urobilinogen (Negative) mg/dL Ur Leukocyte [place] (Negative) Urine RBC (0-2) /hpf Urine WBC (0-5) /hpf Ur Squamous Epith Cells (0-5) /hpf Amorphous Sediment Urine Bacteria (NONE) /hpf Urine Mucus /hpf 08/16/20 08/16/20 08/16/20 Range/Units 00:35 03:00 04:25 WBC (4.0-10.0) 10^3/ uL RBC (4.1-5.3) 10^6/u L Hgb (11.5-15.3) g/dL Hct (37.0-47.0) % MCV (81-99) fL MCH (28.0-34.0) pg MCHC (30.0-36.0) g/dL RDW (12.1-15.1) % Plt Count (130-400) 10^3/c mm MPV (7.4-10.4) fL Neut % (Auto) % Lymph % (Auto) % [place] % (Auto) % Eos % (Auto) % Baso % (Auto) % Neut # (Auto) (1.8-7.7) 10^3/u L Lymph # (Auto) (0.8-4.8) 10^3/u L [place] # (Auto) (0.2-0.9) 10^3/u L Eos # (Auto) (0.0-0.8) 10^3/u L Baso # (Auto) (0.0-0.1) 10^3/u L Nucleated RBC % (a uto) % Nucleated RBCs # /100WBC PT (12.1-14.9) SECO NDS INR (0.8-1.2) Sodium (136-145) mmol/L Potassium (3.5-5.1) mmol/L Chloride (98-107) mmol/L Carbon Dioxide (22-29) mmol/L Anion Gap (5-19) BUN (6-20) mg/dL Creatinine (0.5-0.9) mg/dL GFR Calculation (90-130) mL/min Glucose (65-115) mg/dL Calculated Osmolal ity (285-295) mOsm/k g Calcium (8.5-10.5) mg/dL Total Bilirubin (0.15-1.2) mg/dL AST (0-32) U/L ALT (0-33) U/L Alkaline Phosphata se (35-105) IU/L Troponin T Baselin e 18 H (0-10) ng/L Troponin T 120 Min [place] 15.68 H (0-10) ng/L Delta Troponin T -2.32 L (0-10) ABS# Total Protein (6.6-8.7) g/dL Albumin (3.5-5.2) g/dL Globulin (1.3-4.6) g/dL Lipase (13-60) U/L Urine Color Yellow (Yellow) Urine Appearance Sl cloudy A (CLEAR) Urine pH 5.0 (5-7) Ur Specific Gravit y 1.025 (1.005-1.030) Urine Protein Neg (Negative) Urine Glucose (UA) Norm (Normal) Urine Ketones Negative (Negative) Urine Blood Neg (Negative) Urine Nitrate Negative (Negative) Urine Bilirubin Neg (Negative) Urine Urobilinogen 4 H (Negative) mg/dL Ur Leukocyte [place] Negative (Negative) Urine RBC None (0-2) /hpf Urine WBC 0-4 H (0-5) /hpf Ur Squamous Epith Cells 15-25 H (0-5) /hpf Amorphous Sediment Not Reportable Urine Bacteria 1+ H (NONE) /hpf Urine Mucus 2+ /hpf Discharge Plan Discharge Patient Disposition: Home Clinical Impression: Urticaria Chest pain Qualifiers: Chest pain type: unspecified Qualified Code(s): R07.9 - Chest pain, unspecified Condition: Stable Prescriptions: No Action albuterol sulfate [ProAir HFA] 90 mcg/actuation HFA aerosol inhaler 2 puff INHALATION Q6H PRN (Reason: shortness of breath or wheezing) Qty: 18 RF: 0 diclofenac sodium 1 % gel See Rx Instructions .ROUTE .COMPLEX Qty: 300 RF: 2 famotidine 20 mg tablet 20 mg PO DAILY Qty: 5 RF: 0 prednisone 20 mg tablet 20 mg PO DAILY 5 Days Qty: 5 RF: 0 Tylenol Extra Strength 500 mg Tablet 1,000 mg PO PRN RF: 0 duloxetine 30 mg capsule,delayed release(DR/EC) 30 mg PO DAILY RF: 0 Probiotic 1 cap PO PRN RF: 0 Synthroid 75 mcg tablet 75 mcg PO DAILY RF: 0 Colcrys 0.6 mg tablet 0.6 mg PO BID RF: 0 carvedilol 6.25 mg Tablet 6.25 mg PO BID Qty: 60 RF: 0 clopidogrel 75 mg Tablet 75 mg PO DAILY Qty: 30 RF: 0 lisinopril 10 mg Tablet 20 mg PO DAILY Qty: 60 RF: 0 Lasix 40 mg tablet 40 mg PO BID Qty: 60 RF: 0 Discharge Orders: Discharge Order (Routine); Ordered 08/16/20 Ordered By: Dalia Coughlin Referrals: MG Ham, MANAGER FILE [Primary Care Provider] - Discharge Diet: Usual diet Discharge Activity: Resume usual activity Patient Instructions: Urticaria (ED) Activity Restrictions/Additional Instructions: The exact cause of your rash today is unclear. It could be related to your medications. Contact your primary care provider to discuss this possibility and if there are alternative medications to try. In the meanwhile take the prednisone and famotidine as prescribed. This will help to control hives. Return to the ER if you have worsening symptoms, trouble breathing, persistent vomiting or diarrhea or any other concerns. Coding Level of Care Code ED Material Damage Adjuster for Christy Fwbrandi Exam Comprehensive
--- NOTE | 2020-08-16 02:31 | ECG_ITS ---
[facility] Test Date: 2020-08-16 Pat Name: Freda Perry Department: Room: Gender: Female Waist Presser: : 1965 Requested By: Dalia Baxter Order Number: [id number] Anahi MD: Krista Mercado M.D. Measurements Intervals [place] Rate: 80 P: 46 MD: 155 QRS: 9 QRSD: 174 T: 151 QT: 427 QTc: 493 Interpretive Statements SINUS RHYTHM POSSIBLE LEFT ATRIAL ENLARGEMENT [-0.1mV P WAVE IN V1/V2] LEFT BUNDLE BRANCH BLOCK [120+ ms QRS DURATION, 80+ ms Q/S IN V1/V2, 85+ ms R IN I/aVL/V5/V6] Compared to ECG 08/16/2020 00:20:50 No significant changes Electronically Signed On 08-16-2020 21:55:00 TANK FARM ATTENDANT by Krista Mercado M.D. [id number] f
[2020-08-16] MEDS: ondansetron 2 mg/ML SDV 2 mL 4 MG IVP (02:44)
[2020-08-16 02:45] VITALS: BP 109/71; PULSE 81; RESP 18; O2SAT 96
[2020-08-16 03:03] VITALS: O2SAT 98
[2020-08-16 03:23] LABS: Add Urine Microscopic? YES; Bilirubin Urine Neg (Negative); Blood Urine Neg (Negative); Glucose Urine UA Norm (Normal); Ketones Urine Negative (Negative); Leukocyte Esterase Urine Negative (Negative); Nitrate Urine Negative (Negative); Protein Urine Neg (Negative); Specific Gravity, Urine 1.025 (1.005-1.030); Urine Color Yellow (Yellow); Urobilinogen Urine 4 mg/dL (Negative); WBC Urine 0-4 /hpf (0-5)
[2020-08-16 03:24] LABS: Add Urine Culture? No; Bacteria Urine 1+ /hpf; Mucus Urine 2+ /hpf; Squamous Epithelial Cell Urine 15-25 /hpf (0-5)
[2020-08-16 04:55] LABS: Troponin 5 2HR 15.68 ng/L (0-10)
[2020-08-16 05:16] LABS: Troponin 5 2HR Delta -2.32 ABS# (0-10)
[2020-08-16 05:33] VITALS: BP 122/73; PULSE 83; RESP 18; O2SAT 96
== END 2020-08-16 05:35 | disposition home or self-care (01) ==
PROVIDERS: Emergency Provider Emergency Medicine; PCP Nurse Practitioner Family
DX: L50.9 Urticaria, unspecified (principal); R07.9 Chest pain, unspecified; Z79.02 Long term (current) use of antithrombotics/antiplatelets; I10 Essential (primary) hypertension; E78.2 Mixed hyperlipidemia
CPT/HCPCS: 12345; 71045; 80053; 81001; 83690; 84484; 85025; 85610; 93005; 96374; 96375; 99283; 99284; J1200; J2405; J2930; J3490

== ENCOUNTER → 2021-02-22 15:22 | Outpatient (BNVA) | payer MEDICARE, MEDICAID, SELFPAY | PROVIDERS: PCP Nurse Practitioner Family; Visit Provider Nurse Practitioner Family | DX: I10 Essential (primary) hypertension (principal); R73.09 Other abnormal glucose; E78.2 Mixed hyperlipidemia; E55.9 Vitamin D deficiency, unspecified; E03.9 Hypothyroidism, unspecified | CPT/HCPCS: 80053; 80061; 81003; 82306; 83036; 84439; 84443; 84481; 85025 ==

== ENCOUNTER → 2021-05-08 11:31 | Outpatient (BNVA) | payer MEDICARE, MEDICAID, SELFPAY | PROVIDERS: PCP Nurse Practitioner Family; Visit Provider Nurse Practitioner Family | DX: Z20.822 Contact with and (suspected) exposure to COVID-19 (principal) | CPT/HCPCS: 87635 ==

== ENCOUNTER 2021-07-04 15:12 | Emergency (ER) | payer MEDICARE, MEDICAID, SELFPAY ==
[2021-07-04 15:18] VITALS: BP 140/85; PULSE 75; RESP 18; TEMP 36.6; O2SAT 98; BMI 45.8
--- NOTE | 2021-07-04 15:25 | ECG_ITS ---
[facility] Test Date: 2021-07-04 Pat Name: Freda Perry Department: Room: Gender: Female Laborer Salvage: : 1965 Requested By: Kali Baxter Order Number: [id number] Anahi MD: Yrn Noble M.D. Measurements Intervals [place] Rate: 65 P: 32 [place]: 166 QRS: 11 QRSD: 184 T: 179 QT: 462 QTc: 481 Interpretive Statements SINUS RHYTHM LEFT BUNDLE BRANCH BLOCK [120+ ms QRS DURATION, 80+ ms Q/S IN V1/V2, 85+ ms R IN I/aVL/V5/V6] Compared to ECG 08/16/2020 04:19:22 No significant changes Electronically Signed On 07-04-2021 17:30:33 CDT by Yrn Noble M.D. [id number]
--- NOTE | 2021-07-04 15:25 | XR_ITS ---
WS: [id number] XR chest 1V portable [id number] REASON FOR EXAM: chest pain FINDINGS: The chest is unchanged compared to 08/16/2020. The heart and mediastinum are within normal limits. Eventration of the right hemidiaphragm. Calcified granulomatous disease in both hemithoraces. No active pulmonary parenchymal or pleural disease. Degenerative changes in the mid and lower thoracic spine and both shoulders. XR/XR chest 1V portable [id number] IMPRESSION: Stable chest with no acute abnormality.
--- NOTE | 2021-07-04 15:27 | W.ED.CHESTPA ---
HPI - Chest Pain General: Chief Complaint: Chest Pain Stated Complaint: CHEST PAIN Time Seen by Provider: 07/04/21 15:20 History of Present Illness: HPI narrative: 56-year-old female presents emergency room with complaint of chest pain. She started having chest pain 2 days ago after working. Its, waxed and waned since then. She has a difficult time quantifying it. She had some shortness of breath initially but that is resolved. She tells me she had an LA a year ago. She was seen by nurse practitioner who reported EKG changes and forwarded to the emergency room because of some D's and symptoms from last year's event. Is not currently having any symptoms she denies any shortness of breath or chest pain at this time earlier was radiating to the arms her arm still feels somewhat sore though. PFSH ED PFSH: Medical History (Updated 07/04/21 @ 18:20 by Kali Nugent, ) Breast cancer screening by mammogram Chest pain Chest pain COVID-19 Hypertension Hypothyroidism Patient reported she had stopped taking Levothyroxine in January 2020. Recent TSH levels have been normal. Left bundle branch block (LBBB) Lower respiratory infection Mixed hyperlipidemia Morbid obesity Obesity Patient has been followed for one year for planned bariatric weight loss surgery. CHANDNI (obstructive sleep apnea) Pseudogout of left knee Sleep apnea Synovial cyst of popliteal space [Ascencio], left knee Surgical History History of bladder surgery (1996) History of cholecystectomy (1992) History of ear surgery (2011) Right ear construction and left ear tube placed History of hysterectomy (1995) History of tonsillectomy and adenoidectomy History of tubal ligation (1989) Family History Sister Diabetes Grandmother Diabetes Mother Hypoglycemia Other Cancer Denies family history of Anesthesia complication Bleeding disorder Social History Smoking and tobacco status: never smoked Second hand smoke exposure: No Smoking risk assessment/counseling performed?: No Alcohol intake: former Desire information about alcohol rehabilitation?: No Counseling given: No Desire information about substance/drug rehabilitation?: No Counseling given: No Lives independently: Yes Household members: children Current occupational status: disabled History of recent travel: No Special brissa needs: No Agree to transfusion: No Course Vital Signs: Vital signs: Vital Signs Temperature 97.9 F 07/04/21 15:18 Pulse Rate 67 07/04/21 15:32 Respiratory Rate 18 07/04/21 15:18 Blood Pressure 172/95 07/04/21 19:24 Pulse Oximetry 98 07/04/21 15:32 MDM - Chest Pain MDM Narrative: Medical decision making narrative: Reviewing her chart, last year she was admitted to rule out LA and had a sestamibi stress test there appeared to be some cardiomyopathy on the sestamibi stress test but there was no evidence of ischemia. A follow-up echocardiogram showed a ejection fraction of 40% apparently according to the discharge summary she was to have follow-up with cardiology for repeat echocardiogram unfortunately she only recently seen cardiology. Patient states she seen Dr. Wong within the last couple of weeks. According to the hospitalization notes from last year she did not have an angiogram and there was not a definitive diagnosis of coronary artery disease or an LA at that time. At the only time the patient is aware of having any kind of cardiac evaluation and where she bases the diagnosis of a previous LA. At that time she did have a EKG that showed a left bundle branch block. EKG done today at the primary care office and repeated here does not show any acute changes. Is similar to most recent EKGs done in July of last year. Reviewed labs imaging and EKGs as found on the chart. Nothing acute on EKGs. Patient is completely asymptomatic during hospital stay. We a long discussion after labs for resulted. At this point were going to go ahead and refer back to cardiology. She has had the angiogram and cardiac stress testing last year which were unremarkable. We will have cardiology decide if she needs further stress testing. Return to emergency room immediately if she has any further problems continue current medications. Lab Data: Labs: Lab Results 07/04/21 07/04/21 07/04/21 15:38 15:38 15:38 WBC 7.4 10^3/uL 10^3/ uL (4.0-10.0) RBC 4.92 10^6/uL 10^6 /uL (4.1-5.3) Hgb 15.2 g/dL g/dL (11.5-15.3) Hct 46.1 % % (37.0-47.0) MCV 93.7 fl fl (81-99) MCH 30.9 pg pg (28.0-34.0) MCHC 33.0 g/dL g/dL (30.0-36.0) RDW 12.4 % % (12.1-15.1) Plt Count 203 10^3/cmm 10^3 /cmm (130-400) MPV 9.8 fL fL (7.4-10.4) Neut % (Auto) 57.0 % % Lymph % (Auto) 28.5 % % [place] % (Auto) 9.6 % % Eos % (Auto) 4.3 % % Baso % (Auto) 0.5 % % Neut # (Auto) 4.19 10^3/uL 10^3 /uL (1.8-7.7) Lymph # (Auto) 2.1 10^3/uL 10^3/ uL (0.8-4.8) [place] # (Auto) 0.7 10^3/uL 10^3/ uL (0.2-0.9) Eos # (Auto) 0.3 10^3/uL 10^3/ uL (0.0-0.8) Baso # (Auto) 0.0 10^3/uL 10^3/ uL (0.0-0.1) Nucleated RBC % (a uto) 0 % % Nucleated RBCs # 0.0 /100WBC /100W BC Sodium 136 mmol/L mmol/L (136-145) Potassium 4.1 mmol/L mmol/L (3.5-5.1) Chloride 97 mmol/L L mmol/ L (98-107) Carbon Dioxide 31 mmol/L H mmol/ L (22-29) Anion Gap 12.1 (5-19) BUN 13 mg/dL mg/dL (6-20) Creatinine 0.5 mg/dL mg/dL (0.5-0.9) GFR Calculation 128.1 mL/min mL/m in (90-130) Glucose 90 mg/dL mg/dL (65-115) Calculated Osmolal ity 282 mOsm/kg L mOs m/kg (285-295) Calcium 9.3 mg/dL mg/dL (8.5-10.5) Total Bilirubin 0.6 mg/dL mg/dL (0.15-1.2) AST 20 U/L U/L (0-32) ALT 20 U/L U/L (0-33) Alkaline Phosphata se 120 IU/L H IU/L (35-105) Creatine Kinase 32 U/L U/L (26-192) Troponin T Baselin e 8 ng/L ng/L (0-10) Troponin T 120 Min [place] Delta Troponin T Total Protein 7.0 g/dL g/dL (6.6-8.7) Albumin 4.2 g/dL g/dL (3.5-5.2) Globulin 2.8 g/dL g/dL (1.3-4.6) 07/04/21 17:25 WBC RBC Hgb Hct MCV MCH MCHC RDW Plt Count MPV Neut % (Auto) Lymph % (Auto) [place] % (Auto) Eos % (Auto) Baso % (Auto) Neut # (Auto) Lymph # (Auto) [place] # (Auto) Eos # (Auto) Baso # (Auto) Nucleated RBC % (a uto) Nucleated RBCs # Sodium Potassium Chloride Carbon Dioxide Anion Gap BUN Creatinine GFR Calculation Glucose Calculated Osmolal ity Calcium Total Bilirubin AST ALT Alkaline Phosphata se Creatine Kinase Troponin T Baselin e Troponin T 120 Min [place] 8.38 ng/L ng/L (0-10) Delta Troponin T 0.38 ABS# ABS# (0-10) Total Protein Albumin Globulin Discharge Plan Discharge Patient Disposition: Home Clinical Impression: Atypical chest pain Condition: Stable Prescriptions: No Action carvedilol 6.25 mg tablet See Rx Instructions .ROUTE .COMPLEX Qty: 60 RF: 5 clopidogrel 75 mg tablet See Rx Instructions .ROUTE .COMPLEX Qty: 30 RF: 5 furosemide 40 mg tablet See Rx Instructions .ROUTE .COMPLEX Qty: 60 RF: 5 losartan 50 mg tablet See Rx Instructions .ROUTE .COMPLEX Qty: 30 RF: 5 dexamethasone sodium phosphate 10 mg/mL solution 10 mg IM ONCE Qty: 1 RF: 0 diclofenac sodium 1 % gel See Rx Instructions .ROUTE .COMPLEX Qty: 300 RF: 2 Tylenol Extra Strength 500 mg Tablet 1,000 mg PO PRN RF: 0 duloxetine 30 mg capsule,delayed release(DR/EC) 30 mg PO DAILY RF: 0 Probiotic 1 cap PO PRN RF: 0 Colcrys 0.6 mg tablet 0.6 mg PO BID RF: 0 Discharge Orders: Discharge ED (Routine); Ordered 07/04/21 Ordered By: Kali Nugent Referrals: MG Ham, STRETCHING MACHINE TENDER FRAME [Primary Care Provider] - Patient Instructions: Opioid Safety Activity Restrictions/Additional Instructions: Follow-up with cardiology. Case management will assist with making follow-up appointment. Coding Level of Care Code ED Family Service Counselor for Christy Robertson
[2021-07-04 15:32] VITALS: BP 140/85; PULSE 67; O2SAT 98
[2021-07-04 15:51] LABS: Basophils % 0.5 %; Eosinophils # 0.3 10^3/uL (0.0-0.8); Eosinophils % 4.3 %; Hematocrit 46.1 % (37.0-47.0); Hemoglobin 15.2 g/dL (11.5-15.3); Lymphocytes # 2.1 10^3/uL (0.8-4.8); Lymphocytes % 28.5 %; Mean Corpuscular Hemoglobin 30.9 pg (28.0-34.0); Mean Corpuscular Volume 93.7 fl (81-99); Mean Platelet Volume 9.8 fL (7.4-10.4); Monocytes # 0.7 10^3/uL (0.2-0.9); Monocytes % 9.6 %; Neutrophils # 4.19 10^3/uL (1.8-7.7); Nucleated Red Blood Cells % 0 %; Platelet Count 203 10^3/cmm (130-400); Red Blood Count 4.92 10^6/uL (4.1-5.3); Red Cell Distribution Width 12.4 % (12.1-15.1); White Blood Count 7.4 10^3/uL (4.0-10.0)
[2021-07-04 16:14] LABS: Alanine Aminotransferase 20 U/L (0-33); Albumin Level 4.2 g/dL (3.5-5.2); Alkaline Phosphatase 120 IU/L (35-105); Anion Gap 12.1 (5-19); Aspartate Amino Transferase 20 U/L (0-32); Blood Urea Nitrogen 13 mg/dL (6-20); Calcium 9.3 mg/dL (8.5-10.5); Carbon Dioxide 31 mmol/L (22-29); Chloride 97 mmol/L (98-107); Creatine Phosphokinase 32 U/L (26-192); Creatinine Clr Calc Pharmacy 151.7266; Globulin 2.8 g/dL (1.3-4.6); Glomerular Filtration Rate 128.1 mL/min (90-130); Glucose 90 mg/dL (65-115); Osmolality Calculated 282 mOsm/kg (285-295); Potassium 4.1 mmol/L (3.5-5.1); Sodium 136 mmol/L (136-145); Total Bilirubin 0.6 mg/dL (0.15-1.2)
[2021-07-04 16:17] LABS: Troponin(5th) Baseline 8 ng/L (0-10)
[2021-07-04 18:08] LABS: Troponin 5 2HR 8.38 ng/L (0-10); Troponin 5 2HR Delta 0.38 ABS# (0-10)
[2021-07-04 19:24] VITALS: BP 172/95
== END 2021-07-04 19:27 | disposition home or self-care (01) ==
PROVIDERS: Emergency Provider Family Medicine; PCP Nurse Practitioner Family
DX: R07.89 Other chest pain (principal); Z79.02 Long term (current) use of antithrombotics/antiplatelets; I10 Essential (primary) hypertension; E78.2 Mixed hyperlipidemia
CPT/HCPCS: 71045; 80053; 82550; 84484; 85025; 93005; 99283

== ENCOUNTER → 2021-10-31 10:28 | Outpatient (BNVA) | payer MEDICARE, MEDICAID, SELFPAY | PROVIDERS: PCP Nurse Practitioner Family; Visit Provider Nurse Practitioner Family | DX: Z20.822 Contact with and (suspected) exposure to COVID-19 (principal); Z20.828 Contact with and (suspected) exposure to other viral communicable diseases | CPT/HCPCS: 87635 ==

== ENCOUNTER → 2022-03-21 11:48 | Outpatient (BNVA) | payer MEDICARE, MEDICAID, SELFPAY | PROVIDERS: PCP Nurse Practitioner Family; Visit Provider Nurse Practitioner Family | DX: E78.2 Mixed hyperlipidemia (principal); E03.9 Hypothyroidism, unspecified; I10 Essential (primary) hypertension; Z79.899 Other long term (current) drug therapy | CPT/HCPCS: 80053; 80061; 82306; 83036; 84443; 85025 ==

== ENCOUNTER → 2023-09-13 08:44 | Outpatient (BNVA) | payer MEDICARE, MEDICAID, SELFPAY | PROVIDERS: PCP Family Medicine; Visit Provider Nurse Practitioner Family | DX: I10 Essential (primary) hypertension (principal); E78.2 Mixed hyperlipidemia | CPT/HCPCS: 80053; 80061; 85025 ==

== ENCOUNTER → 2024-01-01 08:21 | Outpatient (BNVA) | payer MEDICARE, MEDICAID, SELFPAY | PROVIDERS: PCP Family Medicine; Visit Provider Nurse Practitioner Family | DX: M54.9 Dorsalgia, unspecified (principal); G89.29 Other chronic pain | CPT/HCPCS: 80307 ==

== ENCOUNTER → 2024-03-02 10:34 | Outpatient (BNVA) | payer MEDICARE, MEDICAID, SELFPAY | PROVIDERS: PCP Nurse Practitioner Family; Visit Provider Nurse Practitioner Family | DX: S96.911A Strain of unspecified muscle and tendon at ankle and foot level, right foot, initial encounter (principal); S93.401A Sprain of unspecified ligament of right ankle, initial encounter; Z79.899 Other long term (current) drug therapy; I10 Essential (primary) hypertension; E78.2 Mixed hyperlipidemia; E03.9 Hypothyroidism, unspecified; M11.262 Other chondrocalcinosis, left knee; M25.579 Pain in unspecified ankle and joints of unspecified foot; J30.89 Other allergic rhinitis; X58.XXXA Exposure to other specified factors, initial encounter | CPT/HCPCS: 73610; 73630; 80053; 82306; 83036; 84439; 84443; 84550; 85025; 85651; 86140 ==

== ENCOUNTER 2024-09-02 11:41 | Outpatient (CLI) | payer MEDICARE, MEDICAID, SELFPAY ==
--- NOTE | 2024-09-02 11:40 | MM_ITS ---
WS: [id number] BILATERAL SCREENING DIGITAL TOMOSYNTHESIS MAMMOGRAM WITH CAD HISTORY: Z12.31 - Encounter for screening mammogram for malignant ... COMPARISON: 04/28/2020, 09/09/2018 Bilateral CC and MLO views with tomosynthesis and synthetic mammography submitted. Computer aided det ection analyzed. Breast composition: There are scattered areas of fibroglandular density. No suspicious masses, microc alcifications or architectural distortion. The entire axillary tails have not been included on this e xamination. MM/MM scr BI tomosynthesis [id number] IMPRESSION: BI-RADS: 2 - Benign. FOLLOW UP: 1 Year Follow-up
== END 2024-09-02 11:42 | disposition home or self-care (01) ==
PROVIDERS: PCP Nurse Practitioner Family; Visit Provider Nurse Practitioner Family
DX: Z12.31 Encounter for screening mammogram for malignant neoplasm of breast (principal); R92.323 Mammographic fibroglandular density, bilateral breasts; E55.9 Vitamin D deficiency, unspecified
CPT/HCPCS: 77063; 77067; 80053; 82306

== ENCOUNTER → 2024-09-09 09:10 | Outpatient (BNVA) | payer MEDICARE, MEDICAID, SELFPAY | PROVIDERS: PCP Nurse Practitioner Family; Visit Provider Nurse Practitioner Family | DX: Z79.899 Other long term (current) drug therapy (principal); J06.9 Acute upper respiratory infection, unspecified | CPT/HCPCS: 83036; 85025; 87400; 87426; 87880 ==

== ENCOUNTER → 2024-09-10 11:37 | Outpatient (BNVA) | payer MEDICARE, MEDICAID, SELFPAY | PROVIDERS: PCP Nurse Practitioner Family; Visit Provider Nurse Practitioner Family | DX: Z79.899 Other long term (current) drug therapy (principal) | CPT/HCPCS: 81003 ==

== ENCOUNTER → 2025-06-09 09:55 | Outpatient (BNVA) | payer MEDICARE, MEDICAID, SELFPAY | PROVIDERS: PCP Nurse Practitioner Family; Visit Provider Nurse Practitioner Family | DX: G57.92 Unspecified mononeuropathy of left lower limb (principal); M25.551 Pain in right hip; M25.552 Pain in left hip; M15.9 Polyosteoarthritis, unspecified; Z79.899 Other long term (current) drug therapy; I10 Essential (primary) hypertension; E78.2 Mixed hyperlipidemia; E03.9 Hypothyroidism, unspecified | CPT/HCPCS: 73502; 80053; 80061; 81003; 82306; 83036; 84443; 85025 ==